=== PATIENT | male | born 1955 | race Caucasian/White ===

== ENCOUNTER 2016-06-24 15:48 | Emergency (ER) | payer MEDICARE, MEDICAID ==
[2016-05-01 16:26] VITALS: BMI 37.7
[~2016-06-24 15:48] MED LIST: ASPIRIN EC81 M1 PO; CLARITIN 10 MG10 MG PO; COREG12.5 MG PO; CYCLOBENZAPRINE10 MG PO; EFFEXOR XR75 MG PO; ELIQUIS2.5 MG PO; FLUTICASONE PRO16 GM NASAL; HYDROCODONE-APA1 TAB PO; LIPITOR80 MG PO; NEURONTIN 400400 MG PO; NORTRIPTYLINE H50 MG PO; OMEPRAZOLE40 MG PO; PAMELOR75 MG PO; PERCOCET 10/3251 TA1 PO; PLAVIX75 MG PO; PROTONIX40 MG PO; VASOTEC20 MG PO; XANAX2 MG PO
[2016-06-24 16:33] LABS: BASOPHILS 0.4 % (0.0-2.0); EOSINOPHILS 3.9 % (0-7); HEMATOCRIT 30.4 % (42.0-54.0); LYMPHOCYTES 17.8 % (15-50); MCH 25.3 pg (26.0-34.0); MCHC 29.6 g/dL (31.0-37.0); MCV 85.4 fL (80.0-100.0); MONOCYTES 9.1 % (2-11); NEUTROPHILS 68.8 % (40-80); PLATELET COUNT 181 10x3/uL (130-400); RBC 3.56 10x6/uL (4.20-6.10); RDW 16.1 % (11.5-14.5); WBC 5.2 10x3/uL (4.8-10.8)
[2016-06-24 16:48] LABS: ALBUMIN 2.9 g/dL (3.4-5.0); ANION GAP 11.4 mmol/L (8-16); BILIRUBIN - TOTAL 0.43 mg/dL (0.2-1.3); CALCIUM 9.1 mg/dL (8.5-10.1); CARBON DIOXIDE 26.4 mmol/L (21.0-32.0); CREATININE - SERUM 1.7 mg/dL (0.6-1.3); POTASSIUM - SERUM 4.8 mmol/L (3.5-5.1); PROTEIN - SERUM 7.3 g/dL (6.4-8.2)
== END 2016-06-24 17:28 | disposition short-term general hospital (02) ==
LOC: D.ER 15:48
PROVIDERS: Family Medicine
DX: T24.201A Burn of second degree of unspecified site of right lower limb, except ankle and foot, initial encounter (principal); X08.8XXA Exposure to other specified smoke, fire and flames, initial encounter; Y93.89 Activity, other specified; Y92.019 Unspecified place in single-family (private) house as the place of occurrence of the external cause; I25.10 Atherosclerotic heart disease of native coronary artery without angina pectoris; E78.5 Hyperlipidemia, unspecified; I10 Essential (primary) hypertension; I95.9 Hypotension, unspecified

== ENCOUNTER 2016-12-15 07:04 | Outpatient (CLI) | payer MEDICARE, MEDICAID ==
[~2016-12-15] VITALS: Ht 180.3 cm; Wt 121.4 kg
--- NOTE | ~2016-12-15 | HEMODYNAMI ---
PATIENT:KIRSTIE SANTOYO MEDICAL RECORD: [id number] : 53 LOCATION:[facility] ADMISSION DATE: 12/15/16 Generatedon:12/15/201610:43 Patient name: KIRSTIE SANTOYO Patient #: [id number] SSN: [id number] : 1955 Date of study: 12/15/2016 Page: Of Hemodynamic Procedure Report Patient Data Patient Demographics Procedure consent was obtained First Name: KIRSTIE Gender: Male Last Name: NATANAEL : 1955 Middle Initial: L Age: 61 year(s) Patient #: [id number] Race: Unknown SSN: [id number] Additional ID: [id number] Contact details [address]: [address] [place] [address] State: [place] City: [place] Zip code: [address] Past Medical History Allergies Allergen Reaction Date Comments Reported Vancomycin 03/20/2016 Morphine 03/20/2016 Vancomycin 12/15/2016 Other allergy 12/15/2016 SOTALOL Admission Admission Data Admission Date: 12/15/2016 Admission Time: 7:04 Arrival Date: 12/15/2016 Arrival Time: 0:00 Height (in.): 62 BSA: 2.15 (m2) Height (cm.): 157.48 BMI: 48.47 (kg/m2) Weight (lbs.): 265 Weight (kg.): 120.2 Lab Results Lab Result Date: 12/15/2016 Lab Result Time: 0:00 Biochemistry Name Units Result Min Max BUN mg/dl 23 --(----)-* 7 18 Creatinine mg/dl 1.3 --(---*)-- 0.6 1.3 CBC Name Units Result Min Max Hemoglobin g/dl 11 *-(----)-- 13.5 17.5 Procedure Procedure Types Cath Procedure Diagnostic Procedure LHC LH w/Coronaries Cardioversion PCI Procedure Coronary Stent Initial Procedure Description Procedure Date Procedure Date: 12/15/2016 Procedure Start Time: 10:10 Procedure End Time: 10:40 Procedure Staff Name Function Tomasz Ribeiro MD Performing Physician Kira Kelly RT Scrub Dale Alfred RN Nurse Marietta Denney RN Nurse Pollo Parikh RT Monitor Joaquin Neil MD Additional personnel Procedure Data Cath Procedure Fluoroscopy Diagnostic fluoroscopy Total fluoroscopy Time: 6.9 time: 6.9 min min Diagnostic fluoroscopy Total fluoroscopy dose: dose: 2307 mGy 2307 mGy Contrast Material Contrast Material Type Amount (ml) Isovue 300 162 Entry Location Entry Primary Successful Side Size Upsize Upsize Entry Closure Lane ccessful Closure Location (Fr) 1 (Fr) 2 (Fr) Remarks Device Remarks Radial Right 6 Fr Mechanical artery Short Compression Estimated blood loss: 10 ml Diagnostic catheters Device Type Used For End Catheter Placement Diagnostic Terumo 5Fr Procedure Odin 110cm catheter Cordis Aqua 5Fr Roberts Procedure 125cm catheter Procedure Medications Medication Administration Route Dosage Refer to Anesthesia Notes for Sedation Medications Oxygen NC 6 l/min Heparin Flush Bag added to field 2 bags (1000units/500ml NS) Lidocaine 2% added to field 20 0.9% NaCl I.V. 100 ml/hr Heparin Bolus I.V. 5000 units Integrilin (Bolus I.V. 10.7 ml 2mg/ml) Hemodynamics Rest BSA: 2.15 (m2) HGB: 11 (g/dl) O2 Consumption: Estimated: 266.49 (ml/min) O2 Cons umption indexed: Estimated:123.95 (ml/min/m) Heart Rate: 88 (bpm) Pressure Samples Time Site Value (mmHg) Purpose Heart Use Rate(bpm) 10:13 LV 122/14,14 Snapshot 98 Snapshots Pre Cath Intra NCS Post Cath Vital Signs Time Heart Resp SPO2 etCO2 [id number] Respiration NIBP (mmHg) Rhythm Tati n Sedation Rate (ipm) (%) (mmHg) (mmHg) (CO2) (ipm) Status Leve l (bpm) 9:44:52 91 21 96 0 0 158/110(135) A-Fib 0 ( 11) 10(A) , No pain 9:49:14 89 16 100 31.5 5.2 15 166/124(147) A-Fib 0 ( 11) 10(A) , No pain 9:53:35 99 23 100 28.5 0 11 164/124(137) A-Fib 0 ( 11) 10(A) , No pain 9:57:57 102 17 100 36.7 1.5 14 156/120(140) A-Fib 0 ( 11) 10(A) , No pain 10:02:17 93 13 100 33.8 5.2 11 142/115(134) A-Fib 0 ( 11) 10(A) , No pain 10:06:31 88 15 100 36 6 13 143/110(124) A-Fib 0 ( 11) 10(A) , No pain 10:10:47 98 14 94 0 0 159/111(138) NSR 0 ( 11) 9(A) , No pain 10:14:57 100 15 94 20.2 0 11 128/94(123) NSR 0 ( 11) 9(A) , No pain 10:19:07 99 15 99 0 0 130/98(113) NSR 0 ( 11) 9(A) , No pain 10:23:18 99 13 98 15.7 5.2 13 129/89(110) NSR 0 ( 11) 9(A) , No pain 10:27:28 99 16 96 0 0 136/92(111) NSR 0 ( 11) 9(A) , No pain 10:31:42 99 15 98 20.2 0 9 138/95(119) NSR 0 ( 11) 9(A) , No pain 10:35:56 96 13 99 36.8 1.5 7 128/94(114) NSR 0 ( 11) 10(A) , No pain 10:40:06 96 12 99 36.8 5.2 14 139/98(112) NSR 0 ( 11) 10(A) , No pain Medications Time Medication Route Dose Verified Delivered Reason Notes Ef fectiveness by by 9:50:20 Refer to Anesthesia Notes for Sedation Medications 9:50:44 Oxygen NC 6 Marietta Marietta used for l/min Олег Олег cloth folder hand RN 9:50:53 Heparin Flush added 2 Marietta Marietta used for Bag to bags Олег Олег procedure (1000units/500ml field RN RN NS) 9:51:03 Lidocaine 2% added 20ml Marietta Marietta used for to vial Олег Олег procedure field RN RN 9:51:15 0.9% NaCl I.V. 100 Marietta Marietta used for ml/hr Олег Олег cloth folder hand RN 10:18:36 Heparin Bolus I.V. 5000 Tomasz Marietta Per verified units Gema Denney physician with dr. AUGUSTO ribeiro 10:19:04 Integrilin I.V. 10.7 Tomasz Marietta Per verified (Bolus 2mg/ml) ml Gema DIAMOND Олег physician with dr. AUGUSTO ribeiro. wasted 9.3 ml of vial Procedure Log Time Note 9:26:05 Arrival Date: 12/15/2016 12:00:00 AM 9:26:24 Patient Height : 62 cm 9:26:36 Patient Weight : 265 kg 9:34:22 Lab Result : Creatinine 1.3 mg/dl 9:34:22 Lab Result : BUN 23 mg/dl 9:34:22 Lab Result : Hemoglobin 11 g/dl 9:35:18 Diagnostic Cath status Elective 9:35:45 Dale Alfred RN sent for patient. Start room use. 9:36:12 Time tracking: Regular hours 9:36:18 Plan of Care:Hemodynamics will remain stable., Cardiac rhythm will remain stable., Comfort level will be maintained., Respiratory function will remain adequate., Patient/ family verbilizes understanding of procedure., Procedure tolerated without complication., Recovers from procedure without complications.. 9:36:25 Patient received from Pre/Post Procedure Room to CCL 1 Alert and oriented. Tansferred to table in Supine position. 9:38:32 Patient arrived from Pre/Post Procedure Room to CCL 1. Patient remains on bed/stretcher for procedure. 9:41:18 Warm blankets applied, and jayant hugger turned on for patient comfort. 9:41:19 Correct patient and procedure confirmed by team. 9:41:27 Signed procedure consent form obtained from patient. 9:41:28 ECG and BP/O2 sat monitors applied to patient. 9:42:09 PATIENT HAS DRESSINGS ON THE RIGHT LEG FROM VAUGHAN 9:43:37 Vital chart was started 9:43:38 Baseline sample Acquired. 9:44:12 Rhythm: atrial fibrillation 9:44:15 Full Disclosure recording started 9:44:30 H&P Date Dictated: 12/13/2016 Within 30 days and on chart., H&P Addendum completed by physician on day of procedure. (MUST COMPLETE FOR ALL OUTPATIENTS). 9:44:32 Pre-procedure instructions explained to patient. 9:44:35 Pre-op teaching completed and patient verbalized understanding. 9:44:38 Family in waiting room. 9:44:41 Patient NPO since Midnight. 9:44:50 Patient allergic to Vancomycin 9:45:44 Patient allergic to Other allergy SOTALOL 9:45:49 Is the patient allergic to Iodine/contrast media? No. 9:50:20 Refer to Anesthesia Notes for Sedation Medications was administered by ; ; 9:50:44 Oxygen 6 l/min NC was administered by Marietta Denney RN; used for procedure; 9:50:53 Heparin Flush Bag (1000units/500ml NS) 2 bags added to field was administered by Marietta Denney RN; used for procedure; 9:51:03 Lidocaine 2% 20ml vial added to field was administered by Marietta Denney RN; used for procedure; 9:51:15 0.9% NaCl 100 ml/hr I.V. was administered by Marietta Denney RN; used for procedure; 9:56:10 Is patient on blood thinner?Yes 9:56:15 ACC The patient was administered the following blood thiners within the last 24 hours: Eliquis 9:56:23 Patient diabetic? No. 9:56:27 ----Pre-sedation anethsthesia assessment.---- 9:56:30 Previous problem with sedation/anesthesia? No ? 9:56:32 Snore? Yes 9:56:35 Sleep apnea? No 9:56:37 Deviated septum? No 9:56:38 Opens mouth fully? Yes 9:56:40 Sticks out tongue? Yes 9:56:43 Airway obstruction? No ? 9:56:54 Dentures? No ? 9:57:04 Pre procedure: right dorsailis pedis pulse Doppler 9:57:09 Pre procedure: left dorsailis pedis pulse Doppler 9:57:13 Modified [place]'s test Ulnar < 7 seconds 9:57:17 Patient pain scale 0/10 ?. 9:57:27 IV patent on arrival in left wrist with 0.9% NaCl at KVO. 9:57:30 Lab results completed and on chart. 9:57:35 Right Radial & Right Groin area was prepped with chlora-prep and draped in sterile fashion 9:57:37 Alarms reviewed by R. N. 9:57:37 Sharps counted by scrub and verified by R.N. 9:57:40 Physician arrived 9:58:11 Use device set Radial Dx 9:58:13 Acist Syringe opened to sterile field. 9:58:13 Medline Cath Pack opened to sterile field. 9:58:14 Bag Decanter opened to sterile field. 9:58:18 Terumo 6Fr Slender Glidesheath opened to sterile field. 9:58:19 St Kiran 260cm J .035 wire opened to sterile field. 9:58:20 Acist Hand Control opened to sterile field. 9:58:21 Acist Manifold opened to sterile field. 9:58:21 Tegaderm 4 x 4 opened to sterile field. 9:58:23 MBrace Wrist Support opened to sterile field. 10:00:08 Baseline sample Acquired. 10:02:34 Physician paged 10:05:16 Procedure type changed to Cath procedure, Diagnostic procedure, LHC, LHC w/Coronaries, Cardioversion, PCI procedure, Coronary Stent Initial 10:05:20 Physician arrived 10:05:21 --------ALL STOP TIME OUT------ 10:05:22 Final Timeout: patient, procedure, and site verified with staff and physician. All members of the team are in agreement. 10:06:11 Physical assessment completed. ASA score P 2 - A patient with mild systemic disease as per Joaquin Neil MD. 10:06:17 Sedation plan: TIVA Propofol 10:07:49 ------Cardioversion------ 10:07:50 Quick combo pads placed on patients chest and back. 10:08:01 Defibrillator synced and charged to 300 Joules. 10:08:49 --------ALL STOP TIME OUT------ 10:08:54 Right Radial & Right Groin site verified by team. 10:08:58 Physical assessment completed. ASA score P 2 - A patient with mild systemic disease as per Tomasz Ribeiro MD. 10:09:33 Shock delivered. 10:09:37 Patient cardioverted to sinus rhythm . 10:10:33 Procedure started. 10:10:51 Local anesthetic to right radial artery with Lidocaine 2% by Tomasz Ribeiro MD.INITIAL ACCESS ONLY 10:12:02 A 6 Fr Short sheath was inserted into the Right Radial artery 10:12:21 A Diagnostic ABSMaterialsumo 5Fr Odin 110cm catheter was advanced over the wire and used for Procedure. 10:13:33 LV hemodynamics recorded. 10:13:35 LV gram done using KNIGHT 10:13:50 EF : 55 % 10:14:58 LCA angiography performed. 10:16:11 RCA angiography performed. 10:18:36 Heparin Bolus 5000 units I.V. was administered by Marietta Denney RN; Per physician; verified with dr. ribeiro 10:19:04 Integrilin (Bolus 2mg/ml) 10.7 ml I.V. was administered by Marietta Denney RN; Per physician; verified with dr. ribeiro. wasted 9.3 ml of vial 10:20:08 Catheter removed. 10:21:25 A Cordis Aqua 5Fr Roberts 125cm catheter was advanced over the wire and used for Procedure. 10:21:41 Left renal angiography performed. 10:21:43 Right renal angiography performed. 10:21:51 Catheter removed. 10:21:52 Proceeding to intervention. 10:22:22 [employer] Inc. BasixCompak Inflation Kit opened to sterile field. 10:22:23 Mead Whisper J 300cm 0.014 guide wire opened to sterile field. 10:22:24 Cordis 6FR XBLAD 3.5 guide catheter opened to sterile field. 10:22:53 6 Fr XBLAD 3.5 guide catheter was inserted over the wire 10:24:23 WHISPER wire advanced. 10:24:45 Wire advanced across lesion. 10:27:21 The Biofreedom 2.5 x 28 stent (No Cost Implant) was advanced then removed because of failure to cross lesion 10:28:39 Inflation number: 1 A Clinton Longaccess Louisa 2.5 X 20 balloon was prepped and advanced across the 1st Ob Tali, then inflated to 13 KIRK for 0:10 (min:sec). 10:29:08 Balloon removed over the wire. 10:31:03 Inflation Number: 2 A Biofreedom 2.5 x 28 stent (No Cost Implant) was prepped and advanced across the 1st Ob Tali. The stent was deployed at 13 KIRK for 0:10 (min:sec). 10:31:20 Stent catheter was removed intact over wire. 10:31:21 Wire removed. 10:31:21 Guide catheter removed. 10:32:23 Terumo TR Band Standard opened to sterile field. 10:32:41 Sheath removed intact; hemostasis achieved with Mechanical Compression to the Right Radial artery. 10:32:44 Procedure ended.(Physican Out) 10:34:12 Fluoroscopy time 06.90 minutes. 10:34:23 Fluoroscopy dose: 2307 mGy 10:34:23 Flurop Dose total: 2307 10:34:29 Contrast amount:Isovue 300 162ml. 10:34:31 Sharps counted by scrub and verified by R.N. 10:37:41 TR band inflated with 10cc of air. 10:37:45 Insertion/operative site no bleeding no hematoma. 10:38:19 Post right radial artery:stable 10:38:23 Post Procedure Pulses reassessed and unchanged 10:38:55 Post-procedure physical assessment completed. ASA score P 2 - A patient with mild systemic disease as per Tomasz Ribeiro MD. 10:39:20 Post procedure rhythm: sinus rhythm 10:39:27 Estimated blood loss: 10 ml 10:40:00 Post procedure instruction explained to patient.Patient verbalizes understanding. 10:40:01 Patient needs reinforcement of post procedure teaching. 10:40:02 Procedure and supply charges have been captured, reviewed, submitted and are correct. 10:40:04 Vital chart was stopped 10:40:05 See physician's report for complete and final results. 10:40:06 Report given to Pre/Post Procedure Room. 10:40:12 Patient transfered to Pre/Post Procedure Room with Stretcher. 10:40:15 Procedure ended. 10:40:15 Full Disclosure recording stopped 10:40:25 End room use (Document Last) Intervention Summary Intervention Notes Time ActionType Lesion and Equipment Action# Pressure Duration Attributes Used 10:27:21 Discard Biofreedom Stent 2.5 x 28 stent (No Cost Implant) 10:28:39 Inflate 1st Ob Tali Clinton Sci 1 13 00:10 balloon Louisa 2.5 X 20 balloon 10:31:03 [address] stent 1st Ob Tali Biofreedom 2 13 00:10 2.5 x 28 stent (No Cost Implant) Device Usage Item Name Manufacture Quantity Catalog Number Hospital Part Current Mini mal Lot# / Charge Number Stock Stock Serial# Code Acist Acist 1 13722 408554 494336 239809 20 Syringe Medical Systems Inc Medline Cardinal 1 [id number] 039070 44215 000985 5 Cath Pack Health Bag Microtek 1 2001S [id number] 44773 128291 5 Decanter Medical Inc. Terumo 6Fr Terumo 1 [id number] 224015 486008 147544 [address] Kiran St Kiran 1 895605 794318 276213 417350 30 260cm J .035 wire Acist Hand Acist 1 03615 086790 584596 808200 5 Control Medical Systems Inc Acist Acist 1 92005 031987 372124 882346 5 Manifold Medical Systems Inc Tegaderm 4 3M 1 1626W 637293 752588 854927 5 x 4 MBrace Advanced 1 140-0250-00 252933 63348 242486 5 Wrist Vascular Support Dynamics Diagnostic Terumo 1 37-6543 887093 920680 686888 5 Terumo 5Fr Odin 110cm catheter Cordis Aqua Cardinal 1 [id number] 074843 106972 709602 5 5Fr Health Roberts 125cm catheter Merit Merit 1 [id number] 452587 893447 578191 15 BasixCompak Medical Inflation Kit [place] 1 [id number] 901058 612734 306957 5 Whisper J Vascular 300cm 0.014 guide wire Cordis 6FR Cardinal 1 [id number] 686199 519566 099772 10 XBLAD 3.5 Health guide catheter Biofreedom Biosensors 1 [facility]2-5015 146594 567177 5 [id number] 2.5 x 28 [place] SA stent (No Cost Implant) Clinton Sci Clinton 1 [id number] 174207 636923 526407 1 MyTime 2.5 X 20 balloon Terumo TR Terumo 1 [id number] 889074 175207 398249 40 Band Standard Signature Audit [place] Stage Time Signature Unsigned Intra-Procedure 12/15/2016 Pollo Parikh 10:43:23 AM RT(R) (CV) Signatures Monitor : Pollo Parikh RT Signature : Date : Time : [address] [address] [place] [address]
--- NOTE | ~2016-12-15 | OP ---
PATIENT NAME: KIRSTIE SANTOYO MEDICAL RECORD: [id number] :53 LOCATION:D.[facility] ADMISSION DATE: SURGEON: HORACE ABDULLAHI MD OPERATION DATE: 12/15/16 PROCEDURES: 1. Percutaneous transluminal coronary angioplasty stent left circumflex. 2. Left heart catheterization. 3. Selective coronary angiography. 4. Direct current cardioversion. INDICATION: 1. Angina. 2. Atrial fibrillation. PROCEDURE IN DETAIL: After informed consent was obtained and after detailed explanation of risks, benefits, as well as alternative therapies, the patient elected to proceed with angiogram. The right radial area was prepped and draped in a normal sterile fashion. The right radial artery was cannulated via modified Seldinger technique with placement of 6-Hebrew sheath. All catheters exchanged through this sheath. FINDINGS: The patient was in atrial fibrillation. Intravenous conscious sedation was performed for anesthesia. He received one shock at 300 joules restoring sinus rhythm. Left ventriculogram was performed in standard 30 degree KNIGHT view, reveals good cardiac wall motion throughout all segments. Overall ejection fraction 60%. SELECTIVE CORONARY ANGIOGRAPHY: 1. Left main showed no significant angiographic disease. 2. Left anterior descending has mild to moderate irregularities but no flow limiting stenosis. 3. Left circumflex has an 80-90% stenosis in the mid vessel. 4. Right coronary artery has an 80-90% stenosis in the mid vessel. PTCA STENT OF THE LEFT CIRCUMFLEX: The stent used was 2.5 X 28 millimeter BioFreedom stent. There was HUBERT 3 flow before and after the intervention. This was in a 2.5 millimeter vessel. The lesion was approximately 25 millimeters in length. OVERALL IMPRESSION: Successful percutaneous transluminal coronary angioplasty stent of the left circumflex going from 80-90% initial stenosis to 0% residual stenosis. Plan for percutaneous transluminal coronary angioplasty stent of the right coronary artery in the near future. HORACE ABDULLAHI MD CC: [id number] DICTATION DATE: 12/20/16 1400 TIE CARRIER: DM 12/20/16 1900 DEP CLI 12/15/16 [facility] [address] [place] [address]
[2016-12-15 07:31] VITALS: BP 165/110; Ht 180.3 cm; Wt 121.4 kg
[2016-12-15] MEDS ORDERED: HYDROCODONE-APA1 TAB PO (07:48)
[2016-12-15] MEDS ORDERED: RYTHMOL (07:50)
[2016-12-15 08:00] LABS: BASOPHILS 0.4 % (0-2); EOSINOPHILS 5.7 % (0-7); HEMATOCRIT 37.9 % (42.0-54.0); IMMATURE GRANULOCYTES 0.3 % (0-5); LYMPHOCYTES 22.1 % (15-50); MCH 24.1 pg (26.0-34.0); MCV 82.9 fL (80.0-100.0); MEAN PLATELET VOLUME 9.6 fL (7.4-10.4); MONOCYTES 9.8 % (2-11); NEUTROPHILS 61.7 % (40-80); PLATELET COUNT 214 10x3/uL (130-400); RBC 4.57 10x6/uL (4.20-6.10); RDW 18.2 % (11.5-14.5); WBC 7.1 10x3/uL (4.8-10.8)
[2016-12-15 08:11] LABS: INR 1.23 (0.85-1.17); PROTIME 15.4 SECONDS (11.6-15.0)
[2016-12-15 08:12] LABS: CALCIUM 8.9 mg/dL (8.5-10.1); CREATININE - SERUM 1.3 mg/dL (0.6-1.3)
[2016-12-15] MEDS ORDERED: IBUPROFEN800 MG PO (09:38)
[2016-12-15 09:54] LABS: CKMB 0.7 U/L (0.0-3.6); CREATINE KINASE 50 UL (21-232); TROPONIN-I < 0.017 ng/mL (0.000-0.060)
[2016-12-15] MEDS ORDERED: PLAVIX75 MG PO (11:04)
--- NOTE | 2016-12-15 11:29 | NUR ---
1105 SITTING UP, ROOM AIR WITH NO NAUSEA. NO C/O CHEST PAIN. PULSES PALP X 4. NSR RATE 90 W NO C/O CHEST PAIN. PULSES PALP X 4. R WRIST TR BAND C/D/I WITH NO HEMATOMA OR BLEEDING.
--- NOTE | 2016-12-15 11:43 | NUR ---
DR. ABDULLAHI AT BEDSIDE TO DISCUSS RESULTS WITH PATIENT. RX FOR CARDURA GIVEN.
[2016-12-15] MEDS ORDERED: CARDURA4 MG PO ×2 (11:45→11:46)
--- NOTE | 2016-12-15 11:55 | NUR ---
1135 SITTING UP IN BED EATING TURKEY SANDWICH. C/O NAUSEA. ZOFRAN GIVEN IV. WILL MONITOR FOR EFFECTIVENESS.
--- NOTE | 2016-12-15 13:08 | NUR ---
1230 SLEEPING, HOB ELEVATED 30DEGREES. NSR RATE, ROOM AIR. R WRIST REMAINS C/D/I WITH NO HEMATOMA OR BLEEDING 1300 VOIDED 800CC VIA URINAL
[2016-12-15 14:39] LABS: CKMB 0.7 U/L (0.0-3.6); CREATINE KINASE 29 UL (21-232)
[2016-12-15 14:44] LABS: TROPONIN-I < 0.017 ng/mL (0.000-0.060)
--- NOTE | 2016-12-15 14:51 | NUR ---
R WRIST TR BAND TITRATED DOWN BY 2CC INCREMENTS. WILL MONITOR CLOSELY FOR BLEEDING. PIV REMOVED FROM LEFT HAND WITH BANDAID APPLIED. UP TO BEDSIDE TO DRESS WITH ASSIT FROM .
--- NOTE | 2016-12-15 14:54 | NUR ---
TR BAND REMOVED WITH TEGADERM AND 2X2 APPLIED. D/C INSTRUCTIONS DISCUSSED WITH PATIENT AND AT BEDSIDE. WHEELED OUT VIA WHEELCHAIR.
== END 2016-12-15 14:55 | disposition home or self-care (01) ==
LOC: D.CATH 07:04
PROVIDERS: Internal Medicine Interventional Cardiology
DX: I20.9 Angina pectoris, unspecified (principal); I48.91 Unspecified atrial fibrillation; Z01.812 Encounter for preprocedural laboratory examination; Z00.6 Encounter for examination for normal comparison and control in clinical research program
CPT/HCPCS: 93458; C9600

== ENCOUNTER 2016-12-20 07:11 | Outpatient (CLI) | payer MEDICARE, MEDICAID ==
[~2016-12-20] VITALS: Ht 180.3 cm; Wt 121.4 kg
--- NOTE | ~2016-12-20 | HEMODYNAMI ---
PATIENT:KIRSTIE SANTOYO MEDICAL RECORD: [id number] : 53 LOCATION:[facility] ADMISSION DATE: 12/20/16 Generatedon:12/20/201610:55 Patient name: KIRSTIE SANTOYO Patient #: [id number] SSN: [id number] : 1955 Date of study: 12/20/2016 Page: Of Hemodynamic Procedure Report Patient Data Patient Demographics Procedure consent was obtained First Name: KIRSTIE Gender: Male Last Name: NATANAEL : 1955 Middle Initial: L Age: 61 year(s) Patient #: [id number] Race: Unknown SSN: [id number] Additional ID: [id number] Contact details Address: [address] [place] [address] State: [place] City: [place] Zip code: [address] Past Medical History Allergies Allergen Reaction Date Comments Reported Vancomycin 03/20/2016 Morphine 03/20/2016 Vancomycin 12/15/2016 Other allergy 12/15/2016 SOTALOL Vancomycin 12/20/2016 Morphine 12/20/2016 Other allergy 12/20/2016 sotalol Admission Admission Data Admission Date: 12/20/2016 Admission Time: 7:11 Height (in.): 71 BSA: 2.38 (m2) Height (cm.): 180.34 BMI: 37.2 (kg/m2) Weight (lbs.): 266.76 Weight (kg.): 121 Lab Results Lab Result Date: 12/20/2016 Lab Result Time: 0:00 Biochemistry Name Units Result Min Max BUN mg/dl 15 --(--*-)-- 7 18 CK-MB ng/ml 1.1 --(-*--)-- 0 3.6 Creatinine mg/dl 1.4 --(----)*- 0.6 1.3 Creatinine l 43 --(*---)-- 21 215 Kinase Troponin l ng/ml 0.017 --(-*--)-- 0 0.06 CBC Name Units Result Min Max Hemoglobin g/dl 9.8 *-(----)-- 13.5 17.5 Procedure Procedure Types Cath Procedure PCI Procedure Coronary Stent Initial Miscellaneous Procedures Moderate Sedation up to 45 minutes Procedure Description Procedure Date Procedure Date: 12/20/2016 Procedure Start Time: 10:23 Procedure End Time: 10:50 Procedure Staff Name Function Tomasz Ribeiro MD Performing Physician Zachariah Leyva RT Scrub Ronni Booth RT Monitor Migdalia Dejesus RN Nurse Procedure Data Cath Procedure Fluoroscopy Diagnostic fluoroscopy Total fluoroscopy Time: time: 11.6 min 11.6 min Diagnostic fluoroscopy Total fluoroscopy dose: dose: 1145 mGy 1145 mGy Contrast Material Contrast Material Type Amount (ml) Isovue 300 255 Entry Location Entry Primary Successful Side Size Upsize Upsize Entry Closure Succes sful Closure Location (Fr) 1 (Fr) 2 (Fr) Remarks Device Remarks Femoral Right 7 Fr Exoseal artery Short Procedure Complications No complications Procedure Medications Medication Administration Route Dosage Oxygen NC 3 l/min Heparin Flush Bag added to field 2 bags (1000units/500ml NS) Lidocaine 2% added to field 20 Versed I.V. 1 mg Fentanyl I.V. 50 mcg Heparin Bolus I.V. 4000 units Nitroglycerin IC/IA I.C. 200 mcg Nitroglycerin IC/IA I.C. 100 mcg Hemodynamics Rest BSA: 2.38 (m2) HGB: 9.8 (g/dl) O2 Consumption: Estimated: 291.42 (ml/min) O2 Con sumption indexed: Estimated:122.45 (ml/min/m) Heart Rate: 84 (bpm) Snapshots Pre Cath Intra NCS Post Cath Vital Signs Time Heart Resp SPO2 etCO2 FU2scrm NIBP (mmHg) Rhythm Pain Sedatio n Rate (ipm) (%) (mmHg) (mmHg) Status Level (bpm) 9:57:10 85 14 98 0 0 145/68(89) A-Fib 0 (11) 10(A) , No pain 10:01:30 90 21 97 0 0 149/77(132) A-Fib 0 (11) 10(A) , No pain 10:05:51 88 14 96 0 0 139/116(132) A-Fib 0 (11) 10(A) , No pain 10:10:07 86 16 98 0 0 143/106(138) A-Fib 0 (11) 10(A) , No pain 10:14:20 85 16 96 0 0 149/92(127) A-Fib 0 (11) 10(A) , No pain 10:18:41 83 19 95 0 0 130/104(127) A-Fib 0 (11) 9(A) , No pain 10:22:50 91 19 96 0 0 142/101(112) A-Fib 0 (11) 9(A) , No pain 10:27:06 84 16 93 0 0 115/73(86) A-Fib 0 (11) 9(A) , No pain 10:31:14 122 19 96 0 0 128/93(109) A-Fib 0 (11) 9(A) , No pain 10:35:28 110 17 95 0 0 130/87(112) A-Fib 0 (11) 9(A) , No pain 10:39:34 103 15 98 0 0 132/96(113) A-Fib 0 (11) 9(A) , No pain 10:43:44 117 16 95 0 0 121/104(116) A-Fib 0 (11) 9(A) , No pain 10:47:45 126 17 94 0 0 116/93(113) A-Fib 0 (11) 9(A) , No pain 10:53:23 117 16 96 0 0 110/83(98) A-Fib 0 (11) 9(A) , No pain Medications Time Medication Route Dose Verified Delivered Reason Notes Effectiveness by by 9:56:00 Oxygen NC 3 Tomasz Migdalia Per physician l/min Gema Dejesus RN 9:56:09 Heparin Flush added 2 Tomasz Tolbert used for Bag to bags Gema Ribeiro MD procedure (1000units/500ml field NS) 9:56:18 Lidocaine 2% added 20ml Tomasz Tolbert used for to vial Gema Ribeiro MD procedure field 10:14:00 Versed I.V. 1 mg Tomasz Migdalia for sedation Gema Dejesus RN 10:14:13 Fentanyl I.V. 50 Tomasz Migdalia for sedation mcg Gema Dejesus RN 10:24:07 Heparin Bolus I.V. 4000 Tomasz Migdalia for dose units Tauth MD Courtland RN anticoagulation verified wtih dr ribeiro 10:44:18 Nitroglycerin I.C. 200 Tomasz Tolbert for IC/IA mcg Gema Ribeiro MD vasodilation 10:45:54 Nitroglycerin I.C. 100 Tomasz Tolbert for IC/IA mcg Gema Ribeiro MD vasodilation Procedure Log Time Note 9:34:02 ACC Patient presents with Stable Angina CCS Anginal Class 2--Slight limitation of ordinary activity. 9:34:04 Diagnostic Cath status Elective 9:36:22 Zachariah BARRAZA(R) sent for patient. Start room use. 9:36:24 Time tracking: Regular hours 9:36:30 Plan of Care:Hemodynamics will remain stable., Cardiac rhythm will remain stable., Comfort level will be maintained., Respiratory function will remain adequate., Patient/ family verbilizes understanding of procedure., Procedure tolerated without complication., Recovers from procedure without complications.. 9:49:24 Patient received from Pre/Post Procedure Room to CCL 1 Alert and oriented. Tansferred to table in Supine position. 9:49:26 Warm blankets applied, and jayant hugger turned on for patient comfort. 9:49:26 Correct patient and procedure confirmed by team. 9:49:34 Signed procedure consent form obtained from patient. 9:49:36 ECG and BP/O2 sat monitors applied to patient. 9:55:44 Vital chart was started 9:56:00 Oxygen 3 l/min NC was administered by Migdalia Dejesus RN; Per physician; 9:56:09 Heparin Flush Bag (1000units/500ml NS) 2 bags added to field was administered by Tomasz Ribeiro MD; used for procedure; 9:56:18 Lidocaine 2% 20ml vial added to field was administered by Tomasz Ribeiro MD; used for procedure; 9:56:41 Baseline sample Acquired. 9:56:46 Rhythm: atrial fibrillation 9:56:48 Full Disclosure recording started 10:04:48 Baseline sample Acquired. 10:05:05 H&P Date Dictated: 12/20/2016 Within 30 days and on chart.. 10:05:07 Pre-procedure instructions explained to patient. 10:05:07 Pre-op teaching completed and patient verbalized understanding. 10:05:09 Family in patients room. 10:05:11 Patient NPO since Midnight. 10:05:22 Patient allergic to Vancomycin 10:05:46 Patient allergic to Morphine 10:06:05 Patient allergic to Other allergysotalol 10:06:07 Is the patient allergic to Iodine/contrast media? No. 10:06:11 Is patient on blood thinner?Yes 10:06:15 ACC The patient was administered the following blood thiners within the last 24 hours: ACCPlavix 10:06:19 Patient diabetic? No. 10:06:20 ----Pre-sedation anethsthesia assessment.---- 10:06:23 Previous problem with sedation/anesthesia? No ? 10:06:48 Snore? Yes 10:06:50 Sleep apnea? No 10:06:51 Deviated septum? No 10:06:52 Opens mouth fully? Yes 10:06:54 Sticks out tongue? Yes 10:06:56 Airway obstruction? No ? 10:06:59 Dentures? No ? 10:07:01 Pre procedure: right dorsailis pedis pulse 1+ Palpable, but thready & weak; easily obliterated 10:07:05 Modified [place]'s test Ulnar > 7 seconds. 10:07:08 Patient pain scale 0/10 ?. 10:07:12 IV patent on arrival in right hand with 0.9% NaCl at 10ml/hr. 10:13:32 Lab Result : BUN 15 mg/dl 10:13:32 Lab Result : Creatinine 1.4 mg/dl 10:13:32 Lab Result : CK-MB 1.1 ng/ml 10:13:32 Lab Result : Creatinine Kinase 43 l 10:13:32 Lab Result : Troponin l 0.017 ng/ml 10:13:32 Lab Result : Hemoglobin 9.8 g/dl 10:13:32 Hemodynamic formulas in Rest were re-calculated based on hemoglobin value from 12/20/2016 12:00:00 AM 10:13:36 Lab results completed and on chart. 10:13:42 Right groin area was prepped with chlora-prep and draped in sterile fashion 10:13:43 Alarms reviewed by R. N. 10:13:43 Sharps counted by scrub and verified by R.N. 10:13:44 --------ALL STOP TIME OUT------ 10:13:45 Final Timeout: patient, procedure, and site verified with staff and physician. All members of the team are in agreement. 10:13:47 Right groin site verified by team. 10:13:50 Physical assessment completed. ASA score P 2 - A patient with mild systemic disease as per Tomasz Ribeiro MD. 10:13:53 Sedation plan: IV Moderate Sedation Versed, Fentanyl 10:14:00 Versed 1 mg I.V. was administered by Migdalia Dejesus RN; for sedation; 10::13 Fentanyl 50 mcg I.V. was administered by Migdalia Dejesus RN; for sedation; 10:18:57 Use device set Femoral PCI 10:18:58 Acist Syringe opened to sterile field. 10:18:59 Acist Hand Control opened to sterile field. 10:18:59 Bag Decanter opened to sterile field. 10:18:59 Medline Cath Pack opened to sterile field. 10:19:00 St Kiran 260cm J .035 wire opened to sterile field. 10:19:01 Merit BasixCompak Inflation Kit opened to sterile field. 10:19:01 Acist Manifold opened to sterile field. 10:19:03 Tegaderm 4 x 4 opened to sterile field. 10:19:10 Mead Whisper J 300cm 0.014 guide wire opened to sterile field. 10:19:15 Terumo 7Fr [place] Sheath opened to sterile field. 10:20:03 Zero performed for pressure channel P1 10:22:23 Medtronic Launcher 7Fr AR 2.0 SH guide catheter opened to sterile field. 10:22:28 Procedure started. 10:23:04 Local anesthetic to right femoral artery with Lidocaine 2% by Tomasz Ribeiro MD.INITIAL ACCESS ONLY 10:23:16 A 7 Fr Short sheath was inserted into the Right Femoral artery 10:23:29 7 Fr AR 2 SH guide catheter was inserted over the wire 10:24:07 Heparin Bolus 4000 units I.V. was administered by Migdalia Dejesus RN; for anticoagulation; dose verified wtih dr ribeiro 10:25:18 Cordis 7Fr Exoseal opened to sterile field. 10:25:45 Richfield Sci PT Graphix J 300cm 0.014 guide wire opened to sterile field. 10:26:02 ACC Pre-intervention HUBERT Flow is 3. 10:26:08 ACC PCI Site: dRCA has 90% stenosis. 10:26:11 ACC Pre-intervention HUBERT Flow is 3. 10:26:26 PDA WHISPER wire advanced. 10:26:54 PDL RCA PT GRAPHIX wire advanced. 10:29:57 Wire removed. 10:29:57 Wire removed. 10:29:58 Guide catheter removed. 10:31:42 Medtronic Launcher 6Fr HS II SH guide catheter opened to sterile field. 10:31:54 6 Fr HS 11 SH guide catheter was inserted over the wire 10:32:54 PLV CPT GRAPHIX wire advanced. 10:33:52 DISTAL RCA WHISPER wire advanced. 10:37:20 Inflation number: 1 A Richfield Sci [place] 2.5 X 15 balloon was prepped and advanced across the Dist RCA, then inflated to 11 KIRK for 0:13 (min:sec). 10:38:44 Inflation number: 2 The Richfield Sci [place] 2.5 X 15 balloon was reinflated across the Dist RCA, to 11 KIRK for 0:10 (min:sec). 10:38:50 Inflation number: 3 The [place] Sci [place] 2.5 X 15 balloon was reinflated across the Dist RCA, to 13 KIRK for 0:10 (min:sec). 10:39:05 Inflation number: 4 The [place] Sci [place] 2.5 X 15 balloon was reinflated across the Dist RCA, to 13 KIRK for 0:14 (min:sec). 10:39:19 Inflation number: 5 The [place] Sci Wrangell 2.5 X 15 balloon was reinflated across the Dist RCA, to 13 KIRK for 0:13 (min:sec). 10:39:34 Balloon removed over the wire. 10:41:28 Wire removed. 10:42:29 Inflation Number: 6 A Biofreedom 2.25 x 24 Stent (No Cost Implant) was prepped and advanced across the Dist RCA. The stent was deployed at 17 KIRK for 0:16 (min:sec). 10:42:59 Inflation number: 7 The stent balloon was then re-inflated across the Dist RCA to 11 KIRK for 0:12 (min:sec). 10:43:20 Inflation number: 8 The stent balloon was then re-inflated across the Dist RCA to 13 KIRK for 0:10 (min:sec). 10:44:18 Nitroglycerin IC/IA 200 mcg I.C. was administered by Tomasz Ribeiro MD; for vasodilation; 10:45:54 Nitroglycerin IC/IA 100 mcg I.C. was administered by Tomasz Ribeiro MD; for vasodilation; 10:46:41 Stent catheter was removed intact over wire. 10:46:46 Wire removed. 10:46:47 Guide catheter removed. 10:46:52 Contrast amount:Isovue 300 255ml. 10:47:00 Sheath removed intact; hemostasis achieved with Exoseal to the Right Femoral artery. 10:47:04 Procedure ended.(Physican Out) 10:47:25 Fluoroscopy time 11.60 minutes. 10:47:29 Flurop Dose total: 1145 10:47:29 Fluoroscopy dose: 1145 mGy 10:47:30 Sharps counted by scrub and verified by R.N. 10:47:31 Insertion/operative site no bleeding no hematoma. 10:47:33 Post-op/insertion site Right Femoral artery dressed using a 4 x 4 and Tegaderm. 10:47:37 Post right femoral artery:stable 10:47:38 Post Procedure Pulses reassessed and unchanged 10:47:41 Post procedure: right dorsailis pedis pulse 1+ Palpable, but thready & weak; easily obliterated. 10:48:29 Post procedure rhythm: atrial fibrillation 10:49:07 Post procedure instruction explained to patient.Patient verbalizes understanding. 10:49:40 Procedure type changed to Cath procedure, PCI procedure, Coronary Stent Initial, Miscellaneous Procedures, Moderate Sedation up to 45 minutes 10:49:44 Procedure and supply charges have been captured, reviewed, submitted and are correct. 10:50:21 Procedure Complication : No complications 10:50:33 Patient Weight : 266.76 kg 10:50:47 Patient Height : 71 cm 10:50:51 Vital chart was stopped 10:50:52 See physician's report for complete and final results. 10:50:53 Report given to Pre/Post Procedure Room. 10:50:56 Patient transfered to Pre/Post Procedure Room with Stretcher. 10:50:59 Procedure ended. 10:50:59 Full Disclosure recording stopped 10:51:03 End room use (Document Last) 10:51:12 PT ON PLAVIX Intervention Summary Intervention Notes Time ActionType Lesion and Equipment Action# Pressure Duration Attributes Used 10:37:20 Inflate Dist RCA Richfield Sci 1 11 00:13 balloon [place]rangell 2.5 X 15 balloon 10:38:44 Reinflate Dist RCA [place] Sci 2 11 00:10 balloon [place] 2.5 X 15 balloon 10:38:50 Reinflate Dist RCA [place] Sci 3 13 00:10 balloon [place] 2.5 X 15 balloon 10:39:05 Reinflate Dist RCA [place] Sci 4 13 00:14 balloon [place] 2.5 X 15 balloon 10:39:19 Reinflate Dist RCA [place] Sci 5 13 00:13 balloon [place] 2.5 X 15 balloon 10:42:29 [address] stent Dist RCA Biofreedom 6 17 00:16 2.25 x 24 Stent (No Cost Implant) 10:42:59 Reinflate Dist RCA Biofreedom 7 11 00:12 stent 2.25 x 24 balloon Stent (No Cost Implant) 10:43:20 Reinflate Dist RCA Biofreedom 8 13 00:10 stent 2.25 x 24 balloon Stent (No Cost Implant) Device Usage Item Name Manufacture Quantity Catalog Number Hospital Part Current Mini mal Lot# / Charge Number Stock Stock Serial# Code Acist Acist 1 [id number] [id number] [id number] [id number] 20 Webjam [employer] Systems Inc Acist Hand Acist 1 31347 124396 907075 486360 5 Zzish Systems Inc Bag Microtek 1 2002S 857444 90776 892319 5 Zebtab Inc. Medline Cardinal 1 [id number] 724902 30053 139358 5 Uranium Energy [facility] Kiran St Kiran 1 945219 912660 994281 574434 30 260cm J .035 wire Merit Merit 1 [id number] 521854 402024 161275 15 .Club Domains Medical Inflation Kit Acist Acist 1 62995 086059 917864 160815 5 My Healthy World Medical Systems Inc Tegaderm 4 3M 1 1626W 800642 852024 318693 5 x 4 Mead Mead 1 [id number] 987044 898117 440778 5 Whisper J Vascular 300cm 0.014 guide wire Terumo 7Fr Terumo 1 [id number] 848603 334187 533166 5 Mililani Sheath Medtronic Medtronic 1 [id number] 906983 773617 436400 0 Launcher 7Fr AR 2.0 SH guide catheter Cordis 7Fr Cardinal 1 EX700 323559 138183 037261 5 Exoseal [facility] Richfield Sci Richfield 1 [id number] 336833 587996 544041 5 PT TapCrowd J 300cm 0.014 guide wire Medtronic Medtronic 1 [id number] 863930 28622 884880 1 Launcher 6Fr HS II SH guide catheter Richfield Sci Richfield 1 [id number] 238875 303538 796584 1 [id number] Nanotether [employer] 2.5 X 15 balloon Biofreedom Biosensors 1 [id number] 672420 783999 5 [id number] 2.25 x 24 Europe SA Stent (No Cost Implant) Signature Audit [place] Stage Time Signature Unsigned Intra-Procedure 12/20/2016 Ronni Booth 10:55:00 AM RT(R) Signatures Monitor : Ronni Booth RT Signature : Date : Time : [id number] [facility] [place] [address]
[~2016-12-20 07:11] MED LIST changes: +CARDURA4 MG PO; +IBUPROFEN800 MG PO; +RYTHMOL
[2016-12-20 07:54] VITALS: BP 152/94; Ht 180.3 cm; Wt 121.4 kg
[2016-12-20 08:09] LABS: BASOPHILS 0.4 % (0-2); EOSINOPHILS 7.1 % (0-7); HEMATOCRIT 33.2 % (42.0-54.0); HEMOGLOBIN 9.8 g/dL (13.5-17.5); LYMPHOCYTES 22.5 % (15-50); MCH 24.2 pg (26.0-34.0); MCHC 29.5 g/dL (31.0-37.0); MEAN PLATELET VOLUME 9.5 fL (7.4-10.4); PLATELET COUNT 191 10x3/uL (130-400); RBC 4.05 10x6/uL (4.20-6.10); RDW 18.5 % (11.5-14.5); WBC 4.8 10x3/uL (4.8-10.8)
[2016-12-20 08:38] LABS: CALC OSMOLALITY 284 mosm/kg (275-300); CALCIUM 8.5 mg/dL (8.5-10.1); CARBON DIOXIDE 27.1 mmol/L (21.0-32.0); CHLORIDE - SERUM 107 mmol/L (98-107); CKMB 1.1 U/L (0.0-3.6); CREATINE KINASE 43 UL (21-232); CREATININE - SERUM 1.4 mg/dL (0.6-1.3); GLUCOSE 108 mg/dL (74-106); SODIUM 142 mmol/L (136-145); UREA NITROGEN 15 mg/dL (7-18); eGFR NON AFRICAN AMERICAN 54 mL/min (90-120)
[2016-12-20 08:48] LABS: TROPONIN-I 0.017 ng/mL (0.000-0.060)
[2016-12-20] MEDS ORDERED: ELIQUIS2.5 MG PO (11:18)
--- NOTE | 2016-12-20 11:25 | NUR ---
3L NC, NO RESP DISTRESS NOTED. RIGHT GROIN 7F EXOSEAL CDI, NO BLEEDING OR HEMATOMA NOTED. NO C/O CHEST PAIN OR NAUSEA. INSTRUCTED PT TO KEEP HEAD FLAT ON PILLOW AND RIGHT LEG STRAIGHT.
--- NOTE | 2016-12-20 12:05 | NUR ---
RESTING QUIETLY IN BED. 3L NC, NO RESP DISTRESS NOTED. RIGHT GROIN 7F EXOSEAL CDI, NO BLEEDING OR HEMATOMA NOTED. VSS. NO C/O CHEST PAIN OR NAUSEA. AT BEDSIDE, CALL LIGHT WITHIN REACH.
--- NOTE | 2016-12-20 12:41 | NUR ---
RESTING QUIETLY. VSS. 3L NC, NO RESP DISTRESS NOTED. RIGHT GROIN 7F EXOSEAL CDI, NO BLEEDING OR HEMATOMA NOTED. NO C/O CHEST PAIN OR NAUSEA AT THIS TIME. SIDE RAILS UP X2, CALL LIGHT WITHIN REACH.
--- NOTE | 2016-12-20 13:10 | NUR ---
3L NC, NO RESP DISTRESS NOTED. RIGHT GROIN 7F EXOSEAL CDI, NO BLEEDING OR HEMATOMA NOTED. NO C/O AT THIS TIME. VSS.
--- NOTE | 2016-12-20 14:32 | NUR ---
HOB ELEVATED 30 DEGREES. RIGHT GROIN 7F EXOSEAL CDI, NO BLEEDING OR HEMATOMA NOTED.
--- NOTE | 2016-12-20 14:45 | NUR ---
RIGHT HAND PIV D/C'D, BAND AID TO SITE. UP TO BEDSIDE TO GET DRESSED.
--- NOTE | 2016-12-20 14:54 | NUR ---
UP TO RESTROOM TO VOID.
--- NOTE | 2016-12-20 15:10 | NUR ---
DISCHARGE INSTRUCTIONS GIVEN, VERBALIZED UNDERSTANDING.
--- NOTE | 2016-12-20 15:15 | NUR ---
TAKEN OUT VIA WHEELCHAIR BY CATH JANITOR AND CLEANER. LEFT FACILITY WITH FAMILY MEMBER AND ALL PERSONAL BELONGINGS.
--- NOTE | 2016-12-22 10:09 | HP ---
PATIENT: KIRSTIE SANTOYO MEDICAL RECORD: [id number] ACCOUNT: [id number] LOCATION:[facility] : 53 ADMISSION DATE: 12/20/16 HISTORY AND PHYSICAL EXAMINATION PROBLEM LIST: 1. Angina. 2. Atrial fibrillation. 3. Coronary artery disease. 4. Recent percutaneous transluminal coronary angioplasty stent left circumflex. 5. Hypertension. 6. Hyperlipidemia. HISTORY OF PRESENT ILLNESS: The patient presented last week with anginal symptomatology. He was found to have two vessel coronary artery disease of the left circumflex and right coronary artery. He underwent successful percutaneous transluminal coronary angioplasty stent of the left circumflex. He is now brought back for percutaneous transluminal coronary angioplasty stent of the right coronary artery. PHYSICAL EXAMINATION: HEAD, EYES, EARS, NOSE, AND THROAT: Benign. NECK: Supple. No jugular venous distention. Carotid upstroke plus two bilaterally without bruits. LUNGS: Overall clear to auscultation and percussion. HEART: Regular. Normal S1, normal S2. No S3, no S4. No murmurs. BONES, JOINTS, EXTREMITIES: No clubbing, cyanosis, or edema. REVIEW OF SYSTEMS: Standard. OVERALL IMPRESSION: Anginal symptomatology with significant disease of the right coronary artery. PLAN: Will proceed with percutaneous transluminal coronary angioplasty stent of the right coronary artery. HORACE ABDULLAHI MD at 1009 CC: [id number] DICTATION DATE: 12/20/16 1200 INTERACTIVE MEDIA MARKETING SPECIALIST: DULCE 12/20/16 1856 DEP CLI 12/20/16 [id number] [place] [address]
--- NOTE | 2016-12-22 10:09 | OP ---
PATIENT NAME: KIRSTIE SANTOYO MEDICAL RECORD: [id number] :53 LOCATION:D.CAT ADMISSION DATE: SURGEON: HORACE ABDULLAHI MD OPERATION DATE: 12/20/16 PROCEDURES: 1. Percutaneous transluminal coronary angioplasty stent right coronary artery. 2. Selective coronary angiography. INDICATION: 1. Angina. 2. Coronary artery disease. PROCEDURE IN DETAIL: After informed consent was obtained and after detailed explanation of risks, benefits, as well as alternative therapies, the patient elected to proceed with angiogram. The right femoral area was prepped and draped in a normal sterile fashion. The right femoral artery was cannulated via modified Seldinger technique with placement of 7-Kyrgyz sheath. All catheters exchanged through this sheath. FINDINGS: The right coronary artery has a 90% stenosis in the distal aspect. This was addressed with a 2.25 X 24 millimeter BioFreedom stent taken to 17 atmospheres. The result was 0% residual stenosis. HUBERT 3 flow before and after the intervention; 22 millimeter lesion. OVERALL IMPRESSION: Successful percutaneous transluminal coronary angioplasty stent of the right coronary artery going from 90% initial stenosis to 0% residual stenosis. HORACE ABDULLAHI MD at 1009 CC: [id number] DICTATION DATE: 12/20/16 1400 ROUTE DELIVERY MANAGER: DULCE 12/20/161912 DEP CLI 12/20/16 [facility] [address] [place] [address]
== END 2016-12-20 15:15 | disposition home or self-care (01) ==
LOC: D.CATH 07:11
PROVIDERS: Internal Medicine Interventional Cardiology
DX: I25.119 Atherosclerotic heart disease of native coronary artery with unspecified angina pectoris (principal); Z00.3 Encounter for examination for adolescent development state; I10 Essential (primary) hypertension; E78.5 Hyperlipidemia, unspecified; R94.31 Abnormal electrocardiogram [ECG] [EKG]; I48.91 Unspecified atrial fibrillation; Z01.812 Encounter for preprocedural laboratory examination

== ENCOUNTER 2017-01-24 09:11 | Outpatient (CLI) | payer MEDICARE, MEDICAID ==
[~2017-01-24] VITALS: Ht 180.3 cm; Wt 122.7 kg
--- NOTE | ~2017-01-24 | OP ---
PATIENT NAME: KIRSTIE SANTOYO MEDICAL RECORD: [id number] :53 LOCATION:D.CAT ADMISSION DATE: SURGEON: HORACE ABDULLAHI MD DATE OF OPERATION: 01/24/2017 PROCEDURE: DC Cardioversion. Continuous O2 saturation, heart rate, blood pressure monitoring all undertaken, all of which remains stable. IV conscious sedation per anesthesia, he received 1 shock at 300 joules restoring sinus rhythm. OVERALL IMPRESSION: Successful DC cardioversion from atrial fibrillation to sinus rhythm. TRANSINT:[id number] Voice Confirmation ID: [id number] DOCUMENT ID: [id number] HORACE ABDULLAHI MD CC: [id number] DICTATION DATE: 01/24/17 1156 PELLET POST INSPECTOR: 01/24/171954 [facility] CLI 01/24/17 [facility] [address] [place] [address]
--- NOTE | ~2017-01-24 | HEMODYNAMI ---
PATIENT:KIRSTIE SANTOYO MEDICAL RECORD: [id number] : 53 LOCATION:D.CAT ADMISSION DATE: 01/24/17 Generatedon:01/24/201712:01 Patient name: KIRSTIE SANTOYO Patient #: [id number] SSN: [id number] : 1955 Date of study: 01/24/2017 Page: Of Hemodynamic Procedure Report Patient Data Patient Demographics Procedure consent was obtained First Name: KIRSTIE Gender: Male Last Name: NATANAEL : 1955 Middle Initial: L Age: 61 year(s) Patient #: [id number] Race: Unknown SSN: [id number] Additional ID: [id number] Contact details [address]: [address] [place] [address] State: [place] City: [place] Zip code: [address] Past Medical History Allergies Allergen Reaction Date Comments Reported Vancomycin 03/20/2016 Morphine 03/20/2016 Vancomycin 12/15/2016 Other allergy 12/15/2016 SOTALOL Vancomycin 12/20/2016 Morphine 12/20/2016 Other allergy 12/20/2016 sotalol Admission Admission Data Admission Date: 01/24/2017 Admission Time: 9:11 Procedure Procedure Types Cath Procedure Diagnostic Procedure Cardioversion Procedure Description Procedure Date Procedure Date: 01/24/2017 Procedure Start Time: 11:54 Procedure Staff Name Function Tomasz Ribeiro MD Performing Physician Valeriano Lee MD Additional personnel Nick Burroughs RN Nurse Fermin Hahn RT Monitor Hemodynamics Rest Heart Rate: 87 (bpm) Snapshots Pre Cath Intra NCS Post Cath Vital Signs Time Heart Resp SPO2 NIBP (mmHg) Rhythm Pain Sedation Rate (ipm) (%) Status Level (bpm) 11:52:39 80 13 95 148/105(129) NSR 0 (11) 10(A) , No pain 11:56:59 80 15 98 148/104(128) NSR 0 (11) 10(A) , No pain Procedure Log Time Note 11:37:16 Nick Burroughs RN sent for patient. Start room use. 11:46:25 Time tracking: Regular hours 11:46:33 Plan of Care:Hemodynamics will remain stable., Cardiac rhythm will remain stable., Comfort level will be maintained., Respiratory function will remain adequate., Patient/ family verbilizes understanding of procedure., Procedure tolerated without complication., Recovers from procedure without complications.. 11:46:37 Patient arrived from Pre/Post Procedure Room to IR. Patient remains on bed/stretcher for procedure. 11:46:41 Correct patient and procedure confirmed by team. 11:46:42 Signed procedure consent form obtained from patient. 11:46:43 ECG and BP/O2 sat monitors applied to patient. 11:46:59 Full Disclosure recording started 11:47:03 - 11:47:13 H&P Date Dictated: 01/24/2017 H&P Addendum completed by physician on day of procedure. (MUST COMPLETE FOR ALL OUTPATIENTS). 11:47:20 Pre-op teaching completed and patient verbalized understanding. 11:47:24 Pre-procedure instructions explained to patient. 11:47:26 - 11:47:48 SEE ANESTHESIA NOTE FOR PRE PROCDURE TIVA 11:48:30 Quick Combo opened to sterile field. 11:49:31 Quick Combo opened to sterile field. 11:49:59 present and monitoring patient for TIVA. 11:51:05 Vital chart was started 11:51:19 Baseline sample Acquired. 11:51:33 Rhythm: atrial fibrillation 11:53:29 Physician arrived 11:53:30 --------ALL STOP TIME OUT------ 11:53:33 Final Timeout: patient, procedure, and site verified with staff and physician. All members of the team are in agreement. 11:53:38 Physical assessment completed. ASA score P 3 - A patient with severe systemic disease as per Valeriano Lee MD. 11:53:42 Sedation plan: TIVA Propofol 11:54:09 Procedure started. 11:54:10 ------Cardioversion------ 11:54:10 Quick combo pads placed on patients chest and back. 11:54:13 Defibrillator synced and charged to 300 Joules. 11:54:36 Shock delivered. 11:55:02 Patient cardioverted to sinus rhythm . 11:55:18 Procedure ended.(Physican Out) 11:56:08 SEE ANESTHESIA NOTE FOR POST PROCEDURE TIVA 11:56:22 QUICK COMBO PADS REMOVED 12:01:09 Report given to Pre/Post Procedure Room. 12:01:12 Patient transfered to Pre/Post Procedure Room with Stretcher. 12:01:37 Vital chart was stopped Device Usage Item Manufacture Quantity Catalog Hospital Part Current Minimal Lot# / Name Number Charge Number Stock [facility] Marcie ne# Code [employer] 2 [id number] [id number] [id number] 5 Combo Signature Audit [place] Stage Time Signature Unsigned Intra-Procedure 01/24/2017 Fermin 12:01:34 PM Selma RT (R) (CV) Signatures Monitor : Fermin Signature : Selma RT Date : Time : [address] [address]
[2017-01-24] MEDS ORDERED: CARDURA4 MG PO (10:42)
[2017-01-24 10:47] VITALS: BP 143/98; Ht 180.3 cm; Wt 122.7 kg
[2017-01-24 11:02] LABS: BASOPHILS 0.5 % (0-2); EOSINOPHILS 8.4 % (0-7); HEMATOCRIT 35.8 % (42.0-54.0); HEMOGLOBIN 10.5 g/dL (13.5-17.5); IMMATURE GRANULOCYTES 0.2 % (0-5); MCH 23.7 pg (26.0-34.0); MCHC 29.3 g/dL (31.0-37.0); MCV 80.8 fL (80.0-100.0); MEAN PLATELET VOLUME 9.1 fL (7.4-10.4); MONOCYTES 8.6 % (2-11); NEUTROPHILS 51.3 % (40-80); PLATELET COUNT 198 10x3/uL (130-400); RBC 4.43 10x6/uL (4.20-6.10); RDW 17.1 % (11.5-14.5); WBC 5.5 10x3/uL (4.8-10.8)
[2017-01-24 11:39] LABS: INR 1.43 (0.85-1.17); PROTIME 17.4 SECONDS (11.6-15.0)
[2017-01-24 11:46] LABS: ANION GAP 11.2 mmol/L (8-16); CALCIUM 8.4 mg/dL (8.5-10.1); CARBON DIOXIDE 30.4 mmol/L (21.0-32.0); CREATININE - SERUM 1.4 mg/dL (0.6-1.3); POTASSIUM - SERUM 4.6 mmol/L (3.5-5.1)
== END 2017-01-24 13:17 | disposition home or self-care (01) ==
LOC: D.CATH 09:11
PROVIDERS: Internal Medicine Interventional Cardiology
DX: I48.91 Unspecified atrial fibrillation (principal)

== ENCOUNTER 2017-12-28 16:25 | Emergency (ER) | payer MEDICARE, MEDICAID ==
[~2017-12-28] VITALS: Ht 180.3 cm; Wt 116.4 kg
[2017-12-28 16:29] VITALS: Ht 180.3 cm; Wt 116.4 kg
[2017-12-28] MEDS ORDERED: HYDROCODONE-APA1 TAB PO (23:00)
[2017-12-28 23:44] VITALS: BP 114/87
== END 2017-12-28 23:30 | disposition home or self-care (01) ==
LOC: D.ER 16:25
DX: S70.311A Abrasion, right thigh, initial encounter (principal); W05.0XXA Fall from non-moving wheelchair, initial encounter; Y93.89 Activity, other specified; Y92.019 Unspecified place in single-family (private) house as the place of occurrence of the external cause; S70.11XA Contusion of right thigh, initial encounter; Z89.611 Acquired absence of right leg above knee; I10 Essential (primary) hypertension; K21.9 Gastro-esophageal reflux disease without esophagitis

== ENCOUNTER 2018-01-02 16:09 | Inpatient (IN) | payer MEDICARE, MEDICAID ==
[~2018-01-02] VITALS: Ht 180.3 cm; Wt 117.0 kg
[2018-01-02] MEDS ORDERED: BETAPACE 80 MG80 MG PO (16:52)
[2018-01-02 17:34] VITALS: BP 83/51
[2018-01-02 18:00] VITALS: BP 80/50
[2018-01-02 18:23] LABS: BASOPHILS 0.2 % (0-2); EOSINOPHILS 2.6 % (0-7); IMMATURE GRANULOCYTES 0.2 % (0-5); LYMPHOCYTES 22.7 % (15-50); MCH 24.6 pg (26.0-34.0); MCHC 30.8 g/dL (31.0-37.0); MCV 79.7 fL (80.0-100.0); MEAN PLATELET VOLUME 9.7 fL (7.4-10.4); MONOCYTES 11.5 % (2-11); NEUTROPHILS 62.8 % (40-80); PLATELET COUNT 186 10x3/uL (130-400); RBC 2.32 10x6/uL (4.20-6.10); WBC 5.1 10x3/uL (4.8-10.8)
[2018-01-02 18:30] VITALS: BP 86/60
[2018-01-02 18:44] LABS: HEMATOCRIT 18.5 % (42.0-54.0); HEMOGLOBIN 5.7 g/dL (13.5-17.5)
[2018-01-02 18:50] VITALS: BP 90/61
[2018-01-02 19:02] LABS: ALBUMIN 2.3 g/dL (3.4-5.0); ANION GAP 11.5 mmol/L (8-16); BILIRUBIN - TOTAL 0.75 mg/dL (0.2-1.3); CALCIUM 8.1 mg/dL (8.5-10.1); CARBON DIOXIDE 27.7 mmol/L (21.0-32.0); CREATININE - SERUM 1.2 mg/dL (0.6-1.3); POTASSIUM - SERUM 4.2 mmol/L (3.5-5.1); PROTEIN - SERUM 6.5 g/dL (6.4-8.2)
[2018-01-02 22:36] VITALS: BP 99/57; BMI 36.0
[2018-01-03 00:20] VITALS: BP 89/53
[2018-01-03 03:34] VITALS: BP 110/65
[2018-01-03 08:33] VITALS: BP 118/68
[2018-01-03 09:20] LABS: MCH 26.7 pg (26.0-34.0); MEAN PLATELET VOLUME 10.1 fL (7.4-10.4); RDW 16.9 % (11.5-14.5)
[2018-01-03 09:22] LABS: HEMOGLOBIN 14.1 g/dL (13.5-17.5); MCV 83.3 fL (80.0-100.0); PLATELET COUNT 74 10x3/uL (130-400); RBC 5.28 10x6/uL (4.20-6.10); WBC 2.3 10x3/uL (4.8-10.8)
[2018-01-03 09:43] LABS: PLATELET ESTIMATE NORMAL
[2018-01-03 09:44] LABS: INR 1.57 (0.85-1.17); PROTIME 18.3 SECONDS (11.6-15.0)
[2018-01-03 09:45] LABS: APTT 45.9 SECONDS (22.8-39.4)
[2018-01-03 10:09] LABS: % SATURATION 32 % (15-55); IRON 48 ug/dl (35-150); TOTAL IRON BIND CAPACITY 147 ug/dl (260-445); UNSAT IRON BIND CAPACITY 99 ug/dl (150-375)
[2018-01-03 10:15] VITALS: BMI 35.9
[2018-01-03 10:22] VITALS: Ht 180.3 cm; Wt 117.0 kg
[2018-01-03 10:23] LABS: ERYTHROCYTE SEDIMENTATION RATE 75 mm/hr (0-20)
[2018-01-03 12:22] VITALS: BP 101/62
[2018-01-03 17:16] VITALS: BP 107/68
[2018-01-03 20:04] VITALS: BP 106/58
[2018-01-04] VITALS: BP 124/67
[2018-01-04 04:59] VITALS: BP 115/74
[2018-01-04 05:27] LABS: ANION GAP 8.7 mmol/L (8-16); CALCIUM 7.6 mg/dL (8.5-10.1); CARBON DIOXIDE 31.9 mmol/L (21.0-32.0); CREATININE - SERUM 1.2 mg/dL (0.6-1.3); POTASSIUM - SERUM 3.6 mmol/L (3.5-5.1)
[2018-01-04 06:37] LABS: BASOPHILS 0.2 % (0-2); EOSINOPHILS 4.8 % (0-7); IMMATURE GRANULOCYTES 0.2 % (0-5); LYMPHOCYTES 24.7 % (15-50); MCH 26.3 pg (26.0-34.0); MCHC 31.4 g/dL (31.0-37.0); MEAN PLATELET VOLUME 9.2 fL (7.4-10.4); MONOCYTES 12.7 % (2-11); NEUTROPHILS 57.4 % (40-80); RDW 17.4 % (11.5-14.5)
[2018-01-04 06:47] LABS: HEMATOCRIT 23.6 % (42.0-54.0); HEMOGLOBIN 7.4 g/dL (13.5-17.5); PLATELET COUNT 159 10x3/uL (130-400); RBC 2.81 10x6/uL (4.20-6.10)
[2018-01-04 07:45] LABS: APPEARANCE CLEAR (CLEAR); BILIRUBIN NEGATIVE (NEGATIVE); COLOR DK YELLOW (YELLOW); GLUCOSE NEGATIVE (NEGATIVE); KETONE NEGATIVE (NEGATIVE); NITRITE NEGATIVE (NEGATIVE); PROTEIN NEGATIVE (NEGATIVE); SPECIFIC GRAVITY 1.015 (1.005-1.020)
[2018-01-04 09:36] VITALS: BP 127/83
[2018-01-04 12:33] LABS: BASOPHILS 0.2 % (0-2); EOSINOPHILS 4.8 % (0-7); HEMATOCRIT 23.5 % (42.0-54.0); IMMATURE GRANULOCYTES 0.2 % (0-5); LYMPHOCYTES 18.7 % (15-50); MCH 26.4 pg (26.0-34.0); MCHC 31.1 g/dL (31.0-37.0); MCV 84.8 fL (80.0-100.0); MEAN PLATELET VOLUME 9.2 fL (7.4-10.4); MONOCYTES 11.3 % (2-11); NEUTROPHILS 64.8 % (40-80); PLATELET COUNT 145 10x3/uL (130-400); RBC 2.77 10x6/uL (4.20-6.10); RDW 17.5 % (11.5-14.5); WBC 5.2 10x3/uL (4.8-10.8)
[2018-01-04 12:44] LABS: HEMOGLOBIN 7.3 g/dL (13.5-17.5)
[2018-01-04 15:03] VITALS: BP 124/77
[2018-01-04 18:07] VITALS: BP 145/89
[2018-01-05 00:43] VITALS: BP 178/106
[2018-01-05 04:50] VITALS: BP 158/95; BP 1588/95
[2018-01-05 07:40] LABS: BASOPHILS 0.1 % (0-2); EOSINOPHILS 2.5 % (0-7); HEMOGLOBIN 8.5 g/dL (13.5-17.5); IMMATURE GRANULOCYTES 0.3 % (0-5); LYMPHOCYTES 13.2 % (15-50); MCH 26.6 pg (26.0-34.0); MCHC 31.5 g/dL (31.0-37.0); MCV 84.6 fL (80.0-100.0); MEAN PLATELET VOLUME 9.3 fL (7.4-10.4); MONOCYTES 11.7 % (2-11); NEUTROPHILS 72.2 % (40-80); PLATELET COUNT 171 10x3/uL (130-400); RBC 3.19 10x6/uL (4.20-6.10); RDW 17.5 % (11.5-14.5)
[2018-01-05 07:41] LABS: WBC 7.1 10x3/uL (4.8-10.8)
[2018-01-05 08:02] LABS: C-REACTIVE PROTEIN 15.3 mg/dL (0.0-0.9); CALC OSMOLALITY 271 mosm/kg (275-300); CALCIUM 8.4 mg/dL (8.5-10.1); CARBON DIOXIDE 29.4 mmol/L (21.0-32.0); CHLORIDE - SERUM 100 mmol/L (98-107); GLUCOSE 111 mg/dL (74-106); SODIUM 136 mmol/L (136-145); eGFR NON AFRICAN AMERICAN 80 mL/min (90-120)
[2018-01-05 08:03] LABS: UREA NITROGEN 11 mg/dL (7-18)
[2018-01-05 08:30] VITALS: BP 174/100
[2018-01-05 08:49] LABS: ERYTHROCYTE SEDIMENTATION RATE 85 mm/hr (0-20)
[2018-01-05 12:45] VITALS: BP 156/91
[2018-01-05 13:19] LABS: APTT 41.4 SECONDS (22.8-39.4); INR 1.32 (0.85-1.17); PROTIME 15.9 SECONDS (11.6-15.0)
[2018-01-05 18:18] VITALS: BP 95/82
[2018-01-05 20:36] LABS: BASOPHILS 0.2 % (0-2); HEMATOCRIT 27.8 % (42.0-54.0); IMMATURE GRANULOCYTES 0.3 % (0-5); LYMPHOCYTES 12.1 % (15-50); MCH 27.4 pg (26.0-34.0); MCHC 32.4 g/dL (31.0-37.0); MCV 84.8 fL (80.0-100.0); MEAN PLATELET VOLUME 9.1 fL (7.4-10.4); MONOCYTES 13.6 % (2-11); NEUTROPHILS 72.8 % (40-80); PLATELET COUNT 168 10x3/uL (130-400); RBC 3.28 10x6/uL (4.20-6.10)
[2018-01-05 20:37] LABS: WBC 9.1 10x3/uL (4.8-10.8)
[2018-01-05 20:46] LABS: INR 1.48 (0.85-1.17); PROTIME 17.4 SECONDS (11.6-15.0)
[2018-01-05 21:09] VITALS: BP 91/59
[2018-01-06 06:09] LABS: BASOPHILS 0.3 % (0-2); EOSINOPHILS 2.2 % (0-7); HEMATOCRIT 25.1 % (42.0-54.0); HEMOGLOBIN 8.1 g/dL (13.5-17.5); IMMATURE GRANULOCYTES 0.3 % (0-5); LYMPHOCYTES 20.2 % (15-50); MCH 27.3 pg (26.0-34.0); MCHC 32.3 g/dL (31.0-37.0); MCV 84.5 fL (80.0-100.0); MEAN PLATELET VOLUME 9.5 fL (7.4-10.4); MONOCYTES 12.1 % (2-11); NEUTROPHILS 64.9 % (40-80); PLATELET COUNT 179 10x3/uL (130-400); RBC 2.97 10x6/uL (4.20-6.10); RDW 17.7 % (11.5-14.5); WBC 7.8 10x3/uL (4.8-10.8)
[2018-01-06 06:42] LABS: CALCIUM 7.4 mg/dL (8.5-10.1); CARBON DIOXIDE 27.1 mmol/L (21.0-32.0); CREATININE - SERUM 1.3 mg/dL (0.6-1.3); POTASSIUM - SERUM 4.1 mmol/L (3.5-5.1)
[2018-01-06 06:57] VITALS: BP 91/56
[2018-01-06 09:23] VITALS: BP 117/64
[2018-01-06 12:48] VITALS: BP 105/65
[2018-01-06 17:13] VITALS: BP 102/59
[2018-01-06 19:52] VITALS: BP 105/53
[2018-01-06] MEDS ORDERED: XANAX1 MG PO (22:30)
[2018-01-06 22:51] VITALS: BP 105/53
[2018-01-07] VITALS (12 sets, daily range): BP systolic 88–120; BP diastolic 45–71
[2018-01-07 06:28] LABS: BASOPHILS 0.3 % (0-2); EOSINOPHILS 7.4 % (0-7); HEMATOCRIT 23.8 % (42.0-54.0); IMMATURE GRANULOCYTES 0.3 % (0-5); LYMPHOCYTES 23.9 % (15-50); MCHC 31.5 g/dL (31.0-37.0); MCV 85.6 fL (80.0-100.0); MEAN PLATELET VOLUME 9.4 fL (7.4-10.4); MONOCYTES 11.7 % (2-11); NEUTROPHILS 56.4 % (40-80); PLATELET COUNT 171 10x3/uL (130-400); RBC 2.78 10x6/uL (4.20-6.10); RDW 17.7 % (11.5-14.5); WBC 5.9 10x3/uL (4.8-10.8)
[2018-01-07 06:30] LABS: HEMOGLOBIN 7.5 g/dL (13.5-17.5)
[2018-01-07 07:03] LABS: ANION GAP 9.3 mmol/L (8-16); CARBON DIOXIDE 29.1 mmol/L (21.0-32.0); CREATININE - SERUM 1.3 mg/dL (0.6-1.3)
[2018-01-07 07:07] LABS: POTASSIUM - SERUM 3.4 mmol/L (3.5-5.1)
[2018-01-08 05:48] LABS: BASOPHILS 0.2 % (0-2); EOSINOPHILS 9.6 % (0-7); IMMATURE GRANULOCYTES 0.6 % (0-5); LYMPHOCYTES 18.6 % (15-50); MCH 27.5 pg (26.0-34.0); MCHC 31.6 g/dL (31.0-37.0); MEAN PLATELET VOLUME 9.5 fL (7.4-10.4); MONOCYTES 8.6 % (2-11); NEUTROPHILS 62.4 % (40-80); PLATELET COUNT 164 10x3/uL (130-400); RDW 17.1 % (11.5-14.5); WBC 5.1 10x3/uL (4.8-10.8)
[2018-01-08 05:57] LABS: HEMATOCRIT 30.1 % (42.0-54.0); HEMOGLOBIN 9.5 g/dL (13.5-17.5); RBC 3.46 10x6/uL (4.20-6.10)
[2018-01-08 06:14] LABS: ANION GAP 10.4 mmol/L (8-16); CARBON DIOXIDE 31.6 mmol/L (21.0-32.0); CREATININE - SERUM 1.1 mg/dL (0.6-1.3)
[2018-01-08 07:00] VITALS: BP 159/91
[2018-01-08 08:54] VITALS: BP 151/92
[2018-01-08 12:45] VITALS: BP 146/91
[2018-01-08 16:16] LABS: CKMB 0.3 U/L (0.0-3.6); CREATINE KINASE 55 UL (21-232); TROPONIN-I < 0.017 ng/mL (0.000-0.060)
[2018-01-08 16:31] VITALS: BP 154/93
[2018-01-08 20:00] VITALS: BP 169/85
[2018-01-08 21:06] LABS: CKMB 0.4 U/L (0.0-3.6); CREATINE KINASE 58 UL (21-232); TROPONIN-I < 0.017 ng/mL (0.000-0.060)
[2018-01-08 23:59] VITALS: BP 177/92
[2018-01-09 03:13] LABS: BASOPHILS 0 % (0-2); EOSINOPHILS 2.9 % (0-7); HEMATOCRIT 30.5 % (42.0-54.0); HEMOGLOBIN 9.9 g/dL (13.5-17.5); IMMATURE GRANULOCYTES 0.2 % (0-5); LYMPHOCYTES 10.6 % (15-50); MCH 28.1 pg (26.0-34.0); MCHC 32.5 g/dL (31.0-37.0); MCV 86.6 fL (80.0-100.0); MEAN PLATELET VOLUME 9.5 fL (7.4-10.4); NEUTROPHILS 81.3 % (40-80); RBC 3.52 10x6/uL (4.20-6.10); RDW 16.7 % (11.5-14.5)
[2018-01-09 03:18] LABS: PLATELET COUNT 203 10x3/uL (130-400); WBC 11.5 10x3/uL (4.8-10.8)
[2018-01-09 03:42] LABS: ALBUMIN 2.3 g/dL (3.4-5.0); ALKALINE PHOSPHATASE 95 U/L (46-116); ALT (SGPT) 20 U/L (10-68); BILIRUBIN - TOTAL 1.03 mg/dL (0.2-1.3); CALC OSMOLALITY 272 mosm/kg (275-300); CALCIUM 8.5 mg/dL (8.5-10.1); CARBON DIOXIDE 30.8 mmol/L (21.0-32.0); CHLORIDE - SERUM 100 mmol/L (98-107); CKMB 0.2 U/L (0.0-3.6); CREATINE KINASE 44 UL (21-232); GLUCOSE 101 mg/dL (74-106); POTASSIUM - SERUM 3.9 mmol/L (3.5-5.1); PROTEIN - SERUM 6.9 g/dL (6.4-8.2); SODIUM 137 mmol/L (136-145); TROPONIN-I < 0.017 ng/mL (0.000-0.060); UREA NITROGEN 10 mg/dL (7-18); eGFR NON AFRICAN AMERICAN 80 mL/min (90-120)
[2018-01-09 04:00] VITALS: BP 128/60
[2018-01-09 08:07] VITALS: BP 132/93
[2018-01-09 13:03] VITALS: BP 144/103
[2018-01-09 15:41] VITALS: BP 133/82
[2018-01-09 19:48] VITALS: BP 147/88
[2018-01-09 23:54] VITALS: BP 145/61
[2018-01-10 04:00] VITALS: BP 156/87
[2018-01-10 06:08] LABS: HEMATOCRIT 29.9 % (42.0-54.0); HEMOGLOBIN 9.7 g/dL (13.5-17.5); LYMPHOCYTES 19.2 % (15-50); MCH 27.9 pg (26.0-34.0); MCHC 32.4 g/dL (31.0-37.0); MCV 85.9 fL (80.0-100.0); MEAN PLATELET VOLUME 9.3 fL (7.4-10.4); PLATELET COUNT 206 10x3/uL (130-400); RBC 3.48 10x6/uL (4.20-6.10); RDW 16.9 % (11.5-14.5)
[2018-01-10 06:20] LABS: WBC 8.1 10x3/uL (4.8-10.8)
[2018-01-10 06:28] LABS: ALBUMIN 2.4 g/dL (3.4-5.0); ALKALINE PHOSPHATASE 92 U/L (46-116); ALT (SGPT) 25 U/L (10-68); BILIRUBIN - TOTAL 0.93 mg/dL (0.2-1.3); CALC OSMOLALITY 277 mosm/kg (275-300); CALCIUM 8.2 mg/dL (8.5-10.1); CARBON DIOXIDE 26.9 mmol/L (21.0-32.0); CHLORIDE - SERUM 102 mmol/L (98-107); GLUCOSE 118 mg/dL (74-106); POTASSIUM - SERUM 3.8 mmol/L (3.5-5.1); PROTEIN - SERUM 6.1 g/dL (6.4-8.2); SODIUM 139 mmol/L (136-145); UREA NITROGEN 11 mg/dL (7-18); eGFR NON AFRICAN AMERICAN 80 mL/min (90-120)
[2018-01-10 09:50] VITALS: BP 156/88
[2018-01-10 13:45] VITALS: BP 143/84
[2018-01-10 15:21] VITALS: BP 106/89
[2018-01-10 18:26] VITALS: BP 148/73
[2018-01-10 20:26] VITALS: BP 138/69
[2018-01-11] VITALS: BP 157/84
[2018-01-11 05:11] LABS: BASOPHILS 0.3 % (0-2); EOSINOPHILS 7.4 % (0-7); HEMATOCRIT 30.8 % (42.0-54.0); HEMOGLOBIN 9.7 g/dL (13.5-17.5); IMMATURE GRANULOCYTES 0.3 % (0-5); LYMPHOCYTES 23.7 % (15-50); MCH 27.2 pg (26.0-34.0); MCHC 31.5 g/dL (31.0-37.0); MCV 86.3 fL (80.0-100.0); MEAN PLATELET VOLUME 9.3 fL (7.4-10.4); MONOCYTES 7.9 % (2-11); NEUTROPHILS 60.4 % (40-80); PLATELET COUNT 209 10x3/uL (130-400); RBC 3.57 10x6/uL (4.20-6.10); RDW 16.7 % (11.5-14.5); WBC 7.1 10x3/uL (4.8-10.8)
[2018-01-11 05:27] LABS: ALBUMIN 2.4 g/dL (3.4-5.0); CALC OSMOLALITY 278 mosm/kg (275-300); CALCIUM 8.1 mg/dL (8.5-10.1); CARBON DIOXIDE 29.7 mmol/L (21.0-32.0); CHLORIDE - SERUM 104 mmol/L (98-107); GLUCOSE 94 mg/dL (74-106); SODIUM 140 mmol/L (136-145); UREA NITROGEN 12 mg/dL (7-18); eGFR NON AFRICAN AMERICAN 80 mL/min (90-120)
[2018-01-11 05:55] LABS: ALKALINE PHOSPHATASE 107 U/L (46-116); BILIRUBIN - TOTAL 0.86 mg/dL (0.2-1.3); PROTEIN - SERUM 6.3 g/dL (6.4-8.2)
[2018-01-11 05:57] LABS: ALT (SGPT) 32 U/L (10-68)
[2018-01-11 06:19] VITALS: BP 143/81
[2018-01-11 08:09] VITALS: BP 165/100
[2018-01-11 12:47] VITALS: BP 129/79
[2018-01-11 15:58] VITALS: BP 155/109
[2018-01-11 19:53] VITALS: BP 127/69
[2018-01-12 05:00] VITALS: BP 134/82
[2018-01-12 06:39] LABS: BASOPHILS 0.2 % (0-2); EOSINOPHILS 6.4 % (0-7); HEMATOCRIT 31.9 % (42.0-54.0); HEMOGLOBIN 10.1 g/dL (13.5-17.5); IMMATURE GRANULOCYTES 0.3 % (0-5); LYMPHOCYTES 17.5 % (15-50); MCH 27.4 pg (26.0-34.0); MCHC 31.7 g/dL (31.0-37.0); MCV 86.4 fL (80.0-100.0); MEAN PLATELET VOLUME 9.4 fL (7.4-10.4); MONOCYTES 10.3 % (2-11); NEUTROPHILS 65.3 % (40-80); PLATELET COUNT 213 10x3/uL (130-400); RBC 3.69 10x6/uL (4.20-6.10); WBC 6.6 10x3/uL (4.8-10.8)
[2018-01-12 07:11] LABS: ALBUMIN 2.5 g/dL (3.4-5.0); ALKALINE PHOSPHATASE 119 U/L (46-116); ALT (SGPT) 27 U/L (10-68); BILIRUBIN - TOTAL 0.85 mg/dL (0.2-1.3); CALC OSMOLALITY 272 mosm/kg (275-300); CALCIUM 8.5 mg/dL (8.5-10.1); CARBON DIOXIDE 27.2 mmol/L (21.0-32.0); CHLORIDE - SERUM 103 mmol/L (98-107); GLUCOSE 100 mg/dL (74-106); PROTEIN - SERUM 6.7 g/dL (6.4-8.2); SODIUM 136 mmol/L (136-145); UREA NITROGEN 15 mg/dL (7-18); eGFR NON AFRICAN AMERICAN 80 mL/min (90-120)
[2018-01-12 08:49] VITALS: BP 162/94
[2018-01-12 12:38] VITALS: BP 146/76
[2018-01-12 20:30] VITALS: BP 144/81
[2018-01-13 04:30] VITALS: BP 128/76
[2018-01-13 05:00] LABS: BASOPHILS 0.3 % (0-2); EOSINOPHILS 6.2 % (0-7); HEMATOCRIT 32.1 % (42.0-54.0); HEMOGLOBIN 9.9 g/dL (13.5-17.5); IMMATURE GRANULOCYTES 0.7 % (0-5); LYMPHOCYTES 26.4 % (15-50); MCH 26.9 pg (26.0-34.0); MCHC 30.8 g/dL (31.0-37.0); MCV 87.2 fL (80.0-100.0); MEAN PLATELET VOLUME 9.2 fL (7.4-10.4); MONOCYTES 9.5 % (2-11); NEUTROPHILS 56.9 % (40-80); PLATELET COUNT 236 10x3/uL (130-400); RBC 3.68 10x6/uL (4.20-6.10); RDW 16.9 % (11.5-14.5); WBC 6.9 10x3/uL (4.8-10.8)
[2018-01-13 06:10] LABS: ALBUMIN 2.6 g/dL (3.4-5.0); ALKALINE PHOSPHATASE 134 U/L (46-116); ALT (SGPT) 25 U/L (10-68); BILIRUBIN - TOTAL 0.69 mg/dL (0.2-1.3); CALC OSMOLALITY 280 mosm/kg (275-300); CHLORIDE - SERUM 105 mmol/L (98-107); GLUCOSE 100 mg/dL (74-106); POTASSIUM - SERUM 4.4 mmol/L (3.5-5.1); PROTEIN - SERUM 6.2 g/dL (6.4-8.2); SODIUM 140 mmol/L (136-145); UREA NITROGEN 19 mg/dL (7-18); eGFR NON AFRICAN AMERICAN 80 mL/min (90-120)
[2018-01-13 09:10] VITALS: BP 148/58
[2018-01-13 21:58] VITALS: BP 152/97
[2018-01-14 06:35] VITALS: BP 127/64
[2018-01-14 06:36] LABS: BASOPHILS 0.3 % (0-2); EOSINOPHILS 5.7 % (0-7); HEMOGLOBIN 9.9 g/dL (13.5-17.5); IMMATURE GRANULOCYTES 0.3 % (0-5); LYMPHOCYTES 25.8 % (15-50); MCH 27.1 pg (26.0-34.0); MCHC 30.9 g/dL (31.0-37.0); MCV 87.7 fL (80.0-100.0); MEAN PLATELET VOLUME 9.2 fL (7.4-10.4); MONOCYTES 9.7 % (2-11); NEUTROPHILS 58.2 % (40-80); PLATELET COUNT 235 10x3/uL (130-400); RBC 3.65 10x6/uL (4.20-6.10); RDW 17.2 % (11.5-14.5); WBC 6.7 10x3/uL (4.8-10.8)
[2018-01-14 07:08] LABS: ALBUMIN 2.6 g/dL (3.4-5.0); ALKALINE PHOSPHATASE 151 U/L (46-116); ALT (SGPT) 21 U/L (10-68); BILIRUBIN - TOTAL 0.62 mg/dL (0.2-1.3); CALC OSMOLALITY 277 mosm/kg (275-300); CALCIUM 7.8 mg/dL (8.5-10.1); CARBON DIOXIDE 26.8 mmol/L (21.0-32.0); CHLORIDE - SERUM 105 mmol/L (98-107); GLUCOSE 128 mg/dL (74-106); POTASSIUM - SERUM 3.9 mmol/L (3.5-5.1); PROTEIN - SERUM 6.3 g/dL (6.4-8.2); SODIUM 137 mmol/L (136-145); UREA NITROGEN 17 mg/dL (7-18); eGFR NON AFRICAN AMERICAN 80 mL/min (90-120)
[2018-01-14 09:12] VITALS: BP 159/100
== END 2018-01-14 13:02 | disposition home health service (06) | DRG 565 ==
LOC: D.ER 16:09 → D.MS 18:10 → D.EDHOLD 18:10 → D.MS 18:30
PROVIDERS: Anesthesiology; Emergency Medicine; Family Medicine; Internal Medicine Nephrology; Orthopaedic Surgery
PROC: 0JCL0ZZ Extirpation of Matter from Right Upper Leg Subcutaneous Tissue and Fascia, Open Approach (ICD-10-PCS; principal; 2018-01-05 16:00)
DX: T87.43 Infection of amputation stump, right lower extremity (principal); D62 Acute posthemorrhagic anemia; M86.151 Other acute osteomyelitis, right femur; N17.9 Acute kidney failure, unspecified; E78.5 Hyperlipidemia, unspecified; I12.9 Hypertensive chronic kidney disease with stage 1 through stage 4 chronic kidney disease, or unspecified chronic kidney disease; T87.89 Other complications of amputation stump; N18.3 Chronic kidney disease, stage 3 (moderate); I95.9 Hypotension, unspecified; D35.00 Benign neoplasm of unspecified adrenal gland; I48.91 Unspecified atrial fibrillation; N40.0 Benign prostatic hyperplasia without lower urinary tract symptoms; F32.9 Major depressive disorder, single episode, unspecified; F41.9 Anxiety disorder, unspecified; Z87.891 Personal history of nicotine dependence; W05.0XXA Fall from non-moving wheelchair, initial encounter; R53.1 Weakness

== ENCOUNTER 2018-01-14 19:34 | Emergency (ER) | payer MEDICARE, MEDICAID ==
[~2018-01-14] VITALS: Ht 180.3 cm; Wt 112.7 kg
[~2018-01-14 19:34] MED LIST changes: +BETAPACE 80 MG80 MG PO; +XANAX1 MG PO
[2018-01-14 19:36] VITALS: Ht 180.3 cm; Wt 112.7 kg
[2018-01-14 22:37] VITALS: BP 132/87
== END 2018-01-14 22:37 | disposition home or self-care (01) ==
LOC: D.ER 19:34
DX: S00.93XA Contusion of unspecified part of head, initial encounter (principal); Y04.2XXA Assault by strike against or bumped into by another person, initial encounter; Y93.89 Activity, other specified; Y92.019 Unspecified place in single-family (private) house as the place of occurrence of the external cause; Z89.611 Acquired absence of right leg above knee; I10 Essential (primary) hypertension

== ENCOUNTER → 2018-05-06 09:26 | Outpatient (CLI) | payer MEDICARE, MEDICAID ==
[2018-01-14 19:36] VITALS: BMI 34.6
== END | disposition home or self-care (01) ==
LOC: D.MRI 04-23 07:30
DX: M25.511 Pain in right shoulder (principal)

== ENCOUNTER 2020-03-22 19:23 | Inpatient (IN) | payer MEDICARE, MEDICAID ==
[~2020-03-22] VITALS: Ht 180.3 cm; Wt 101.2 kg
--- NOTE | 2020-03-22 19:30 | NUR ---
ADMIT TO PHYSICAL REHAB AND SERVICES OF DR FREITAS. AWAKE AND ALERT. SOME CONFUSION NOTED. SKIN WARM AND DRY. INCISION NOTED TO LOWER BACK WITH HORACE IN PLACE. PIERRE IN PLACE AND PATENT. NO DISTRESS NOTED. SEE ADMISSION ASSESSMENT. CALL LIGHT IN REACH.
--- NOTE | 2020-03-22 21:30 | NUR ---
INCONTINENT OF BM. HAD LARGE LOOSE STOOL. INCONTINECE CARE GIVEN AND BED LINENS CHANGED. CALL LIGHT IN REACH.
[2020-03-22 22:34] VITALS: BP 124/97; BMI 31.1
--- NOTE | 2020-03-23 00:48 | NUR ---
RESTING IN BED WITH EYES CLOSED. RESPIRATIONS UNLABORED. NO DISTRESS NOTED.
--- NOTE | 2020-03-23 02:28 | NUR ---
CONTINUES SLEEPING WITH NO DISTRESS NOTED.
[2020-03-23 06:03] LABS: BILIRUBIN NEGATIVE (NEGATIVE); KETONE NEGATIVE (NEGATIVE); NITRITE NEGATIVE (NEGATIVE); UROBILINOGEN NORMAL mg/dL (< 2)
[2020-03-23 06:04] LABS: BACTERIA FEW HPF (NONE SEEN)
--- NOTE | 2020-03-23 06:11 | NUR ---
MEDICATED FOR PAIN AND WAS RELIEVED. REMAINS CONFUSED. PIERRE PATENT. CALL LIGHT IN REACH.
[2020-03-23 07:01] LABS: BASOPHILS 0.3 % (0-2); EOSINOPHILS 2.2 % (0-7); HEMATOCRIT 38.8 % (42.0-54.0); HEMOGLOBIN 11.9 g/dL (13.5-17.5); IMMATURE GRANULOCYTES 0.3 % (0-5); LYMPHOCYTES 24.7 % (15-50); MCH 26.9 pg (26.0-34.0); MCHC 30.7 g/dL (31.0-37.0); MCV 87.8 fL (80.0-100.0); MEAN PLATELET VOLUME 9.6 fL (7.4-10.4); MONOCYTES 11.6 % (2-11); NEUTROPHILS 60.9 % (40-80); PLATELET COUNT 137 10x3/uL (130-400); RBC 4.42 10x6/uL (4.20-6.10); RDW 15.3 % (11.5-14.5); WBC 7.7 10x3/uL (4.8-10.8)
[2020-03-23 07:11] LABS: ANION GAP 13.9 mmol/L (8-16); CALCIUM 8.5 mg/dL (8.5-10.1); CARBON DIOXIDE 25.9 mmol/L (21.0-32.0); CREATININE - SERUM 1.1 mg/dL (0.6-1.3); POTASSIUM - SERUM 4.8 mmol/L (3.5-5.1)
[2020-03-23 08:36] VITALS: BP 95/65
--- NOTE | 2020-03-23 10:04 | NUR ---
HAS BEEN IN THERAPY ALREADY THIS MORNING. THERAPIST STATED HIS TSLO BRACE WAS TOO SMALL FOR HIM AND PT DID NOT LIKE IT ANYWAY. DR FREITAS WILL BE NOTIFIED. HE IS CONFUSED AND THINKS HE IS IN ANOTHER TOWN. F/C PATENT AND DRAINING CLOUDY URINE. RLE PROSTHESIS IN ROOM WITH PT. BED IN LOWEST POSITION, CALL LIGHT IN REACH, SIDE RAILS UP X2
[2020-03-23 14:16] VITALS: Ht 180.3 cm; Wt 101.2 kg
--- NOTE | 2020-03-23 19:13 | NUR ---
PT SITTING UP IN BED WATCHING TV. CL IN REACH. DENIES NEEDS AT THIS TIME. PT DOES HAVE CONFUSION. BED IN LOW SIDE RAILS X2. BED ALARM ON. RESP EVEN AND UNLABORED. LUNGS CLEAR. BOWEL ACTIVE X4. WILL CONTINUE TO MONITOR.
[2020-03-23 20:52] VITALS: BP 104/67
--- NOTE | 2020-03-24 01:25 | NUR ---
I have reviewed this patient and I concur with the Shift Assessment completed by the Licensed Practical Nurse today this shift.
[2020-03-24 07:23] VITALS: BP 115/83
--- NOTE | 2020-03-24 08:00 | NUR ---
PT RESTING IN BED WITH EYES OPEN CALL LIGHT IN REACH WILL MONITER
[2020-03-24 09:43] LABS: BASOPHILS 0.2 % (0-2); HEMOGLOBIN 11.3 g/dL (13.5-17.5); IMMATURE GRANULOCYTES 0.4 % (0-5); MCH 26.1 pg (26.0-34.0); MCHC 30.5 g/dL (31.0-37.0); MEAN PLATELET VOLUME 9.9 fL (7.4-10.4); MONOCYTES 9.1 % (2-11); NEUTROPHILS 64.3 % (40-80); RBC 4.33 10x6/uL (4.20-6.10); WBC 8.4 10x3/uL (4.8-10.8)
[2020-03-24 09:51] LABS: ANION GAP 12.8 mmol/L (8-16); CALCIUM 8.3 mg/dL (8.5-10.1); CARBON DIOXIDE 27.4 mmol/L (21.0-32.0); POTASSIUM - SERUM 4.2 mmol/L (3.5-5.1)
[2020-03-24 09:55] LABS: CREATININE - SERUM 1.4 mg/dL (0.6-1.3)
[2020-03-24 10:04] LABS: MCV 85.5 fL (80.0-100.0); PLATELET COUNT 167 10x3/uL (130-400)
--- NOTE | 2020-03-24 12:00 | NUR ---
I have reviewed this patient and I concur with the Shift Assessment completed by the Licensed Practical Nurse today this shift.
--- NOTE | 2020-03-24 13:06 | NUR ---
PATIENT ADMITTED TO REHAB FROM AN OUTSIDE FACILITY. DME AT HOME BEDSIDE COMMODE, WALKER, WHEELCHAIR AND A CANE. PATIENT PCP IS DR. MCELROY IN [place]. DC PALNS ARE FOR HIM TO RETURN TO HIS HOME. WILL CONTINUE TO FOLLOW WITH PATIENT.
--- NOTE | 2020-03-24 18:55 | NUR ---
PT RESTING IN BED WITH EYES OPEN CALL LIGHT IN REACH WILL MONITER
[2020-03-24 19:50] VITALS: BP 102/73
--- NOTE | 2020-03-24 19:53 | NUR ---
AWAKE AND ALERT. RESTING IN BED WITH RESPIRAITONS UNLABORED. HORACE INTACT TO LAMINECTOMY SITE IN BACK. NOTED RIGHT AKA. NO DISTRESS NOTED.
--- NOTE | 2020-03-25 00:48 | NUR ---
RESTING QUIETLY. NO DISTRESS NOTED.
--- NOTE | 2020-03-25 03:09 | NUR ---
CONTINUES RESTING WITH NO DISTRESS NOTED.
--- NOTE | 2020-03-25 05:07 | NUR ---
RESTING IN BED. RESPIRATIONS UNLABORED. NO ACUTE CHANGES IN CONDITION. GABBY PATENT. CALL LIGHT IN REACH.
--- NOTE | 2020-03-25 07:30 | NUR ---
HIS BP IS 88/59, HE IS SLEEPING. HE STATES HE FEELS "OK'. WILL RECHECK BP. THE CALL LIGHT IS WITHIN REACH. THE BED ALARM IS ON.
[2020-03-25 07:44] VITALS: BP 89/53
--- NOTE | 2020-03-25 09:30 | NUR ---
HIS BP IS 95/62 IN THE RIGHT ARM, 89/53 IN THE LEFT. REPORTED THIS TO DR. FREITAS. HE IS AWAKE, TALKING NOW.
--- NOTE | 2020-03-25 11:10 | NUR ---
BP IS 103/60, PRN FOR PAIN GIVEN. HE IS IN THE WHEELCHAIR DOING THERAPY.
[2020-03-25 19:00] VITALS: BP 139/82
--- NOTE | 2020-03-26 03:07 | NUR ---
PT IN BED,A&O,NO IMMEDIATE NEEDS NOTED,RESPIRATIONS EVEN/UNLABORED,SAFETY PRECAUTIONS IN PLACE,FLUIDS/CALL LIGHT WITHIN REACH
--- NOTE | 2020-03-26 04:20 | NUR ---
PT ASLEEPAROUSES EASILY TO VOICE ,NO IMMEDIATE NEEDS NOTED,RESPIRATIONS EVEN/UNLABORED,SAFETY PRECAUTIONS IN PLACE,FLUIDS/CALL LIGHT WITHIN REACH
[2020-03-26 06:06] LABS: BASOPHILS 0.5 % (0-2); EOSINOPHILS 5.1 % (0-7); HEMATOCRIT 31.7 % (42.0-54.0); HEMOGLOBIN 9.8 g/dL (13.5-17.5); IMMATURE GRANULOCYTES 0.3 % (0-5); LYMPHOCYTES 23.9 % (15-50); MCH 26.3 pg (26.0-34.0); MCHC 30.9 g/dL (31.0-37.0); MCV 85.2 fL (80.0-100.0); MEAN PLATELET VOLUME 9.9 fL (7.4-10.4); NEUTROPHILS 60.2 % (40-80); PLATELET COUNT 177 10x3/uL (130-400); RBC 3.72 10x6/uL (4.20-6.10); RDW 15.1 % (11.5-14.5)
[2020-03-26 06:07] LABS: WBC 6.2 10x3/uL (4.8-10.8)
[2020-03-26 06:20] LABS: ANION GAP 10.8 mmol/L (8-16); CALCIUM 8.4 mg/dL (8.5-10.1); CARBON DIOXIDE 26.6 mmol/L (21.0-32.0); CREATININE - SERUM 1.3 mg/dL (0.6-1.3); POTASSIUM - SERUM 4.4 mmol/L (3.5-5.1)
[2020-03-26 07:37] VITALS: BP 130/82
--- NOTE | 2020-03-26 08:36 | NUR ---
HE IS UP IN THE WHEELCHAIR IN THE GYM. MEDS GIVEN. NO NEW ISSUES.
--- NOTE | 2020-03-26 17:03 | RHP ---
PATIENT: KIRSTIE SANTOYO MEDICAL RECORD: [id number] ACCOUNT: [id number] LOCATION:[facility] : 53 ADMISSION DATE: 03/22/20 REHABILITATION HISTORY AND PHYSICAL EXAMINATION POST ADMISSION PHYSICIAN EXAMINATION ADMITTING DIAGNOSIS: Spinal cord dysfunction. HISTORY OF PRESENT ILLNESS: The patient is a 64-year-old gentleman who presents secondary to a T10 compression fracture. He apparently was admitted to the acute hospital on 02/27 after being seen in the ED on 02/26 after a fall and was discharged home with analgesic. CT was done and was reread as the patient was notified to return to the acute hospital secondary to findings of a possible T10-T11 level fracture. A CT of his thoracic spine was done in the ED on 02/27 and showed a T10 compression fracture. The patient complained of uncontrolled back pain. He had neurosurgery and cardiology consults. The patient on 03/09 underwent a T10-T11 laminectomy and debridement with drain placement. He has had an ileus that slowly resolved. He has had some episodes of hypotension. He has had some medication adjustments, got a history of BPH in the past and some urinary retention. He has had some confusion that is somewhat resolved. He had been receiving PT and OT and progressing slowly during his acute hospital stay. He is currently being monitored for pain control, neurological changes. His I's and O's are being followed closely. He has had some proximal muscle weakness, fatigue, shortness of breath, deconditioning, impaired mobility, gait disturbance, fall risk, and self-care deficits. These are all barriers to his discharge home. He is currently set up for mod to max assist for ADLs and mobility using a walker. He has got a right lower extremity prosthesis due to a right qmbyf-yfo-rfgr amputation. He would like to return home as close to his prior level of function as he can. COMORBIDITIES: Include weakness, radiculopathy, metabolic encephalopathy, hypotension, ileus, hypokalemia, urinary retention, BPH, depression, chronic renal insufficiency. He has got a history of nicotine dependence. PAST MEDICAL HISTORY: Significant for coronary artery disease, right vudxz-sie-zkyv amputation, chronic pain, neuropathy. He has got a history of mood disorder, got a history of dyslipidemia, arthritis, chronic renal insufficiency, degenerative disc disease, depression, erectile dysfunction, obesity, tobacco use. PAST SURGICAL HISTORY: Includes right wcifb-svv-uzse amputation. He has got a history of heart cath and stents and debridement. ALLERGIES: MORPHINE AND VANCOMYCIN. CURRENT MEDICATIONS: Include Lovenox 40 mg subQ daily. He is on Natasha 60 mg b.i.d., amlodipine 10 mg daily, Flonase nasal spray daily, Protonix 40 mg daily, cyclobenzaprine 10 mg b.i.d., Colace 100 mg b.i.d. He is on Omnicef to get a total of 4 more doses. He is on polyethylene glycol 17 g in 8 ounces of water daily, Neurontin 800 mg t.i.d., Cardura 4 mg b.i.d., sotalol 80 mg b.i.d., Pamelor 50 mg at bedtime. He is on Effexor 150 mg b.i.d. He is on Ventolin updrafts q.6 hours p.r.n., Zofran 4 mg q.4 hours p.r.n., Colace as needed for constipation. He is on OxyIR 5 mg q.4 hours p.r.n., hydrocodone 10/325 as needed for breakthrough pain, and Xanax 1 mg b.i.d. HISTORY AND PHYSICAL [id number] KIRSTIE SANTOYO HABITS: He does have a history of tobacco use. FAMILY HISTORY: Noncontributory. SOCIAL HISTORY: The patient hopes to return back home and get back to his prior level of functioning. REVIEW OF SYSTEMS: GENERAL: Does complain of weakness and fatigue. HEENT: Denies cold, cough, or congestion. CARDIOVASCULAR: Denies any chest pain. PHYSICAL EXAMINATION: VITAL SIGNS: Stable, afebrile. GENERAL: A somewhat obese gentleman, in no acute distress upon exam. HEENT: Normocephalic and atraumatic. Mucosa moist. NECK: Supple. No lymphadenopathy. LUNGS: Clear in upper zimmer. No wheezing or rales. HEART: Regular rate and rhythm. No murmurs, rubs, or gallops. ABDOMEN: Soft, benign, and nondistended. Positive bowel sounds times 4. EXTREMITIES: He does note to have an xwlxx-jol-jgnq amputation. NEUROLOGIC: He does have proximal muscle weakness. LABORATORY DATA: His white count is 7.7, H&H of 11.9 and 38.8, and platelet count is 137. Sodium 136, potassium 4.8, BUN and creatinine of 16 and 1.1, and blood sugar is noted to be 66. His admit UA did show 1+ leukocyte esterase and 5-10 white blood cells. He is on Ancef. ASSESSMENT: A 64-year-old gentleman admitted to the rehab with a working diagnosis of spinal cord dysfunction. The patient has potential to make improvement. We instituted the following multidisciplinary therapies including, but not limited to physical, occupational, respiratory, speech, nutritional services, prosthetics, and orthotics. Given his complex medical condition and risks for more complications, rehabilitation services cannot be provided at a low level of care such as fdc facility. PLAN: 1. Admit to [facility] for inpatient therapy to include the following disciplines: a. Physical therapy to improve gait, all transfer skills, and bed mobility to a modified level. b. Occupational therapy to improve activities of daily living. c. Case management to help with discharge planning and placement options. d. Nutrition to assist with nutritional needs. e. Rehabilitation nursing to assist in monitoring the patient's underlying medical conditions and to assist with any type of bowel or bladder management. 2. The patient's current medication and medical care will be continued. 3. Placed on standard fall precautions. 4. The patient's estimated length of stay is approximately 7-10 days. 5. We will discuss this patient during care team staff meeting this week. NTS:[id number] Voice Confirmation ID: [id number] DOCUMENT ID: [id number] WEI notes whether there has been none or any medical/functional HISTORY AND PHYSICAL [id number] KIRSTIE SANTOYO change since admission: - No change since preadmission screen. WEI attests patient continues to be appropriate for IRF: - Continues to be appropriate. KIARA FREITAS MD at 1703 CC: [id number] DICTATION DATE: 03/23/20 163 DESIGN TECHNICIAN: 03/23/20 181 ADM IN [facility] [address] [place] [address]
--- NOTE | 2020-03-26 20:20 | NUR ---
PATIENT RECEIVED LAYING IN BED. ASSESSMENT & VITAL SIGNS DONE. NO C/O PAIN OR DISTRESS AT THIS TIME. BED LOW. ALARM ON. CALL LIGHT WITHIN REACH. WILL CONTINUE TO MONITOR.
--- NOTE | 2020-03-27 01:31 | NUR ---
I have reviewed this patient and I concur with the Shift Assessment completed by the Licensed Practical Nurse today this shift.
--- NOTE | 2020-03-27 02:07 | NUR ---
PATIENT EYES CLOSED. RESPIRATIONS 18 & EVEN. ALARM ON. BED LOW. CALL LIGHT WITHIN REACH. WILL CONTINUE TO MONITOR.
[2020-03-27] MEDS ORDERED: ALBUTEROL2.5 MG/3 M INH (02:42)
[2020-03-27] MEDS ORDERED: ZOFRAN4 MG PO (02:43)
[2020-03-27] MEDS ORDERED: LOVENOX40 MG/0.4 SC (02:43)
[2020-03-27] MEDS ORDERED: MELATONIN 3 MG1 TAB PO (02:44)
[2020-03-27] MEDS ORDERED: MIRALAX17 GM PO (02:44)
[2020-03-27] MEDS ORDERED: NITROSTAT0.4 MG SL (02:45)
--- NOTE | 2020-03-27 06:39 | NUR ---
PATIENT GIVEN PAIN MEDICATION FOR PAIN LEVEL 8. PIERRE EMPTIED OF 1900 CC OF URINE. BED LOW. ALARM ON. CALL LIGHT WITHIN REACH. WILL CONTINUE TO MONITOR.
--- NOTE | 2020-03-27 07:26 | NUR ---
PT RESTING IN BED WITH EYES OPEN CALL LIGHT IN REACH WILL MONITER
[2020-03-27 07:45] VITALS: BP 110/72
--- NOTE | 2020-03-27 18:47 | NUR ---
PT RESTING IN BED WITH EYES OPEN CALL LIGHT IN REACH NO PROBLEMS WILL MONITER
[2020-03-27 19:00] VITALS: BP 112/78
--- NOTE | 2020-03-27 19:00 | NUR ---
BEDSIDE REPORT GIVEN AND CARE RESUMED. HE IS ALERT AND ORIENTED X 4. HIS PIERRE IS DRAINING CLEAR-YELLOW URINE. BED IS LOW AND YOSHI ALARM ON. PT DENIES NEEDS AT THIS TIME. STATES HE WANTS HIS PAIN MEDICATION WITH HIS NIGHTTIME MEDS.
[2020-03-28 08:00] VITALS: BP 101/76
--- NOTE | 2020-03-28 12:23 | NUR ---
SITTING UP FOR LUNCH. HAS BEEN RESTING QUIETLY IN BED ALL MORNING. F/C DRAINING CLOUDY URINE. HE IS STILL CONFUSED BUT PLEASANT. PAIN MEDS EFFECTIVE. CALL LIGHT IN REACH, SIDE RAILS UP X2, BED IN LOWEST POSTION.
--- NOTE | 2020-03-28 17:00 | NUR ---
SITTING UP IN BED WATCHING TV. PAIN MEDS GIVEN FOR C/O PAIN TO BACK. REMAINS SLIGHTLY CONFUSED BUT COOPERATIVE. F/C DRAINING CLOUDY URINE. CALL LIGHT IN REACH, SIDE RAILS UP X2, BED IN LOWEST POSTION.
[2020-03-28 19:46] VITALS: BP 104/65
--- NOTE | 2020-03-28 20:50 | NUR ---
PATIENT RECEIVED SITTING UP IN BED. ASSESSMENT & VITAL SIGNS DONE. BED LOW. ALARM ON. CALL LIGHT WITHIN REACH. WILL CONTINUE TO MONITOR.
--- NOTE | 2020-03-29 00:38 | NUR ---
I have reviewed this patient and I concur with the Shift Assessment completed by the Licensed Practical Nurse today this shift.
--- NOTE | 2020-03-29 02:14 | NUR ---
PATIENT EYES CLOSED. RESPIRATIONS 18 & EVEN. BED LOW. CALL LIGHT WITHIN REACH. WILL CONTINUE TO MONTITOR.
--- NOTE | 2020-03-29 07:43 | NUR ---
WAS GIVEN MORNING MEDICATIONS WITH A PRN OF XANAX, HIS BP IS 113/69. HE WANTS A NORCO WITH THESE MEDIATIONS. I TOLD HIM I DID NOT FEEL COMFORTABLE GIVING HIM ALL THE PRN WITH HIS SCHEDULED MEDICATIONS. HE STATES "IF I CAN'T HAVE ALL OF THEM, THEN I DON'T WON'T ANY OF THEM". I TOLD HIM HE COULD TAKEN THESE MEDS NOW AND I COULD RECHECK HIS BP IN AN HOUR OR SO AND IF IT WAS OK, I COULD THEN GIVE HIM A NORCO THEN. HE STILL DID NOT WANT ANY OF THE MEDICATIONS. HE TOOK A SHOWER AND HIS BP WAS 100/68. HE NOW IS REFUSING THERAPY. THE CALL IS WITHIN REACH.
[2020-03-29 07:59] VITALS: BP 113/69
[2020-03-29 09:30] VITALS: BP 100/68
--- NOTE | 2020-03-29 10:22 | NUR ---
Nutrition Follow-up: Diet: Regular + Ensure TID PO intake: 100% x last 8 meals Last BM: 03/26/20. Wt: 223# (03/23/20) Meds and labs reviewed Recommend continue current diet. RD following.
--- NOTE | 2020-03-29 10:48 | NUR ---
CLINICAL UPDATES FAXED TO [facility] AT , AUTH. # [id number], WITH FAX CONFORMATION RECIEVED.
[2020-03-29 11:41] LABS: BASOPHILS 0.4 % (0-2); EOSINOPHILS 6.2 % (0-7); HEMATOCRIT 32.9 % (42.0-54.0); HEMOGLOBIN 9.9 g/dL (13.5-17.5); IMMATURE GRANULOCYTES 0.2 % (0-5); LYMPHOCYTES 17.7 % (15-50); MCH 25.7 pg (26.0-34.0); MCHC 30.1 g/dL (31.0-37.0); MCV 85.5 fL (80.0-100.0); MEAN PLATELET VOLUME 9.5 fL (7.4-10.4); MONOCYTES 8.6 % (2-11); NEUTROPHILS 66.9 % (40-80); PLATELET COUNT 190 10x3/uL (130-400); RBC 3.85 10x6/uL (4.20-6.10); RDW 15.1 % (11.5-14.5); WBC 5.5 10x3/uL (4.8-10.8)
[2020-03-29 12:17] LABS: ANION GAP 11.4 mmol/L (8-16); CALCIUM 8.2 mg/dL (8.5-10.1); CARBON DIOXIDE 26.7 mmol/L (21.0-32.0); CREATININE - SERUM 1.1 mg/dL (0.6-1.3); POTASSIUM - SERUM 4.1 mmol/L (3.5-5.1)
--- NOTE | 2020-03-29 15:18 | NUR ---
HE IS SLEEPING. I DID NOT WAKE HIM UP. THE CALL LIGHT IS WITHIN REACH.
--- NOTE | 2020-03-29 19:10 | NUR ---
RECEIVED PT LYING IN BED EYES CLOSED RESTING. AROUSES EASILY WITH STIMULI. C/O LOWER BACK 8/10 RADIATING PAIN. REQUESTS PAIN MEDICATION. ALERT AND ORIENTED X4. PLEASANT AFFECT. PIERRE PATENT FREE FROM KINKS. PT STATES THAT HE DOES NOT WANT PIERRE IN ANYMORE AND DOES NOT UNDERSTAND WHY HE HAS TO HAVE IT WHEN HE DID NOT HAVE ANY ISSUES URINATING BEFORE COMING TO HOSPITAL. INFORMED PT IT WAS THIS NURSE UNDERSTANDING IT WAS FOR RETENTION, ADVISED THIS NURSE WOULD INVESTIGATE FURTHER. PT VERBALIZED UNDERSTANDING. NO OTHER NEEDS VOICED. CALL LIGHT WITHIN REACH. FALL PRECAUTIONS IN PLACE. CPOC
[2020-03-29 21:25] VITALS: BP 153/93
--- NOTE | 2020-03-30 00:54 | NUR ---
PT LYING IN BED EYES CLOSED RESTING. RR EVEN AND UNLABORED. CALL LIGHT WITHIN REACH. WILL CONTINUE TO MONITOR
[2020-03-30 08:13] VITALS: BP 95/78
--- NOTE | 2020-03-30 09:00 | NUR ---
TEMP RECHECKED;103.8.LABS ORDERED.
--- NOTE | 2020-03-30 09:42 | NUR ---
RECIEVED CALL FROM TIFFANIE WITH [facility] THAT PATIENT HAS BEEN APPROVED 03/29/20 -04/02/20 WITH NEW AUTH. # [id number]. WILL CONTINUE TO FOLLOW WITH PATIENT.
[2020-03-30 10:10] LABS: BASOPHILS 0.2 % (0-2); EOSINOPHILS 1.2 % (0-7); HEMATOCRIT 35.2 % (42.0-54.0); HEMOGLOBIN 11.2 g/dL (13.5-17.5); IMMATURE GRANULOCYTES 0.1 % (0-5); LYMPHOCYTES 6.6 % (15-50); MCH 26.7 pg (26.0-34.0); MCHC 31.8 g/dL (31.0-37.0); MEAN PLATELET VOLUME 9.7 fL (7.4-10.4); MONOCYTES 6.4 % (2-11); NEUTROPHILS 85.5 % (40-80); PLATELET COUNT 173 10x3/uL (130-400); RBC 4.19 10x6/uL (4.20-6.10); RDW 15.2 % (11.5-14.5); WBC 11.2 10x3/uL (4.8-10.8)
--- NOTE | 2020-03-30 10:10 | NUR ---
LABS DRAWN AND SWABS AND URINE TAKEN TO LAB.
[2020-03-30 10:24] LABS: ANION GAP 12.7 mmol/L (8-16); CALCIUM 8.4 mg/dL (8.5-10.1); CARBON DIOXIDE 23.9 mmol/L (21.0-32.0); CREATININE - SERUM 1.3 mg/dL (0.6-1.3); POTASSIUM - SERUM 4.6 mmol/L (3.5-5.1)
[2020-03-30 10:49] LABS: BILIRUBIN NEGATIVE (NEGATIVE); KETONE NEGATIVE (NEGATIVE); NITRITE POSITIVE (NEGATIVE)
[2020-03-30 10:56] LABS: WHITE CELLS - URINE >50 HPF (0-1)
[2020-03-30 10:57] LABS: BACTERIA MODERATE HPF (NONE SEEN); EPITHELIAL CELLS NSEEN /hpf (0-5)
--- NOTE | 2020-03-30 11:30 | NUR ---
JORGE WILL DISCHARGE TO ACUTE FLOOR.SUPERVISIOR NOTIFIED FOR BED.
--- NOTE | 2020-03-30 11:46 | NUR ---
DUE TO CHANGE IN MEDICAL CONDITION PATIENT DISCHARGING FROM REHAB AND ADMITTED TO ACUTE FLOOR. DC FAXED TO [place] FAXED TO [phone], AUTH. # [id number].SPOKE WITH GARCIA OF DISCHARGE.
--- NOTE | 2020-03-30 12:30 | NUR ---
REPORT CALLED TO NIKKI.FAMILY NOTIFIED.
--- NOTE | 2020-03-30 13:00 | NUR ---
TYLENOL AND ZOSYN GIVEN. IVF NS PATENT AT 75ML/HR.
--- NOTE | 2020-03-30 14:15 | NUR ---
TAKEN TO ROOM 2131/BED ACUTE FLOOR.
[2020-03-30] MEDS ORDERED: MIRALAX17 GM PO (17:06)
--- NOTE | 2020-03-31 14:10 | NUR ---
TIFFANIE WITH [facility] CALLED STATING THAT PATIENT DAYS WERE APPROVED FROM 03/22/20 - 03/30/20, AUTH. # [id number], DUE TO PATIENT DISCHARGING BACK TO ACUTE FLOOR.
== END 2020-03-30 14:15 | disposition short-term general hospital (02) | DRG 559 ==
LOC: D.REHAB 19:23
PROVIDERS: ADMIT Emergency Medicine; ATTEND Emergency Medicine
DX: S22.079D Unspecified fracture of T9-T10 vertebra, subsequent encounter for fracture with routine healing (principal); G93.41 Metabolic encephalopathy; G95.89 Other specified diseases of spinal cord; K56.7 Ileus, unspecified; R53.1 Weakness; I95.9 Hypotension, unspecified; E87.6 Hypokalemia; R33.9 Retention of urine, unspecified; N40.0 Benign prostatic hyperplasia without lower urinary tract symptoms; F32.9 Major depressive disorder, single episode, unspecified; Z87.891 Personal history of nicotine dependence; N18.9 Chronic kidney disease, unspecified; Z89.611 Acquired absence of right leg above knee; M54.10 Radiculopathy, site unspecified; I10 Essential (primary) hypertension; M19.90 Unspecified osteoarthritis, unspecified site; I25.10 Atherosclerotic heart disease of native coronary artery without angina pectoris; E66.9 Obesity, unspecified; I48.91 Unspecified atrial fibrillation